=== PATIENT | male | born 1960 | race Caucasian/White ===

== ENCOUNTER 2025-03-03 12:59 | Inpatient (IN) ==
[2025-03-03] MEDS: SODIUM CHLORIDE 0.9% 1,000 ML IV SCH ×2 (13:30→18:17)
--- NOTE | 2025-03-03 13:32 | Emergency Department Note ---
History of Present Illness General Chief complaint: Abdominal Pain Stated complaint: ABDOMINAL PAIN, LIQUID IN ABDOMIN? Time Seen by Provider: 03/03/25 13:13 History of Present Illness Maximum Pain Intensity: 2 Patient is a 64-year-old male with past medical history significant for dyslipidemia who presents to the emergency department at the advice of his primary care provider for evaluation of abdominal pain and an abnormal CT scan performed this morning. Patient reports he has been experiencing bilateral lower abdominal discomfort for about 5 days. Pain was dull, but constant in nature, got worse in the last 2 to 3 days. He feels like it is worse in the right lower quadrant. He developed low-grade fever and chills in the last 48 hours. No nausea, vomiting or diarrhea, he actually feels a little bit constipated, last good bowel movement was 24 hours ago. He has not take any medications for his symptoms, but has tried a soft diet. He rated his pain a 2/10 in triage. No urinary symptoms. He was seen at [facility] today, and a CT scan of the abdomen and pelvis with IV contrast was obtained. He was contacted with abnormal findings indicative of "appendicitis," and presented to the emergency department. He did eat eggs, pancakes and tea at 1230 today. Home Medications Medication Instructions Recorded Confirmed Type cholecalciferol (vitamin D3) 50 1,000 units PO PM 06/25/19 09/12/22 History mcg (2,000 unit) capsule rosuvastatin 5 mg tablet (Crestor) 5 mg PO DAILY #90 tabs 08/31/22 09/12/22 Rx Allergies Allergy/AdvReac Type Severity Reaction Status Date / Time No Known Allergies Allergy Verified 09/12/22 09:06 Past Med/Surg History Problem List (Updated 03/03/25 @ 15:22 by Michael Cole) Acute appendicitis with localized peritonitis (Acute) Elevated liver enzymes Systolic murmur at cardiac apex Colon cancer screening Encounter for pre-operative examination Acquired deviated nasal septum Lesion of tongue Medical History Situational anxiety Dyslipidemia BORDERLINE>NO MEDS Vitamin D deficiency Aortic stenosis GERD (gastroesophageal reflux disease) Surgical History History of nasal septoplasty History of laryngoscopy H/O Achilles tendon repair LEFT History of tooth extraction History of surgery suspicious spot removed from face; benign History of colonoscopy Family History Mother Family history of diabetes mellitus Uncle Prostate cancer Other No family history of adverse response to anesthesia Denies family history of Ovarian cancer Myocardial infarction Breast cancer Colorectal cancer Social History Smoking Status: Former smoker Tobacco Type: Pipe and Cigars Age Started Using Tobacco: 20; Age Quit Using Tobacco: 30; Cigarettes Per Day: social; Second Hand Exposure: No; Do You Dip or Chew Tobacco: No; Hx Alcohol Use: No Hx Substance Use: No Preferred Language: Angolan Communication Ability: Effective Visual Impairment: No Limitations Hearing Ability: Normal Clutch Mechanic Required: No Beliefs That Will Affect Care: None marital status: Current Living Situation: Spouse current occupational status: employed current occupation: Professor at [employer] How many Children do You have: 1 How many Children do You have Comment: adopted child Feels Safe at Home: Yes Childhood Exposure to Second-Hand Smoke: No Diet: regular Diet Comment: regular caffeine: Yes (coffee and tea ) during the past year weight has: remained stable Dental Care, Regularly: Yes Physical Activity Frequency: Daily Seatbelt Use: always Sunscreen Use: Yes Assistive Devices: Glasses Review of Systems A total of 10 systems reviewed and were otherwise negative Physical Exam Vital Signs Vital Signs - 24 hr 03/03/25 13:09 03/03/25 13:45 03/03/25 13:48 Temperature 36.7 C Temperature Source Temporal Artery Scan Pulse Rate 60 59 L 57 L Pulse Rate [Right Finger] Pulse Strength Normal Respiratory Rate 18 22 Respiratory Effort / Characteristics Non-Labored Spontaneous Respiratory Depth Normal Respiratory Pattern Regular Blood Pressure 120/76 108/74 Blood Pressure [Right Arm] Blood Pressure Mean 90 85 Blood Pressure Mean [Right Arm] Blood Pressure Position Sitting Blood Pressure Position [Right Arm] Pulse Oximetry 97 98 Oxygen Delivery Method Room Air Room Air Sepsis Recent Fever Within 48 Hours No Sepsis New/Unexplained Change in Mental Status No Sepsis Action Taken by Nursing No Action Required 03/03/25 14:33 03/03/25 14:36 Temperature 36.8 C Temperature Source Oral Pulse Rate Pulse Rate [Right Finger] 107 H Pulse Strength Respiratory Rate 16 Respiratory Effort / Characteristics Non-Labored Respiratory Depth Normal Respiratory Pattern Regular Blood Pressure Blood Pressure [Right Arm] 117/74 Blood Pressure Mean Blood Pressure Mean [Right Arm] 88 Blood Pressure Position Blood Pressure Position [Right Arm] Semi-fowlers Pulse Oximetry 98 Oxygen Delivery Method Room Air Room Air Sepsis Recent Fever Within 48 Hours Sepsis New/Unexplained Change in Mental Status Sepsis Action Taken by Nursing CONSTITUTIONAL: Well-appearing 64-year-old male who is awake and alert and in no acute distress moving about the exam room. is at the bedside. EYES: Pupils equal, round, reactive to light and accommodation. EOMs intact without nystagmus. Sclera are anicteric. CARDIOVASCULAR: Regular rate and rhythm. Peripheral pulses easily palpable. RESPIRATORY: Breath sounds equal and clear to auscultation. ABDOMEN: Bowel sounds are present. The abdomen is soft, nondistended, tender to percussion over the right lower quadrant and tender to palpation in the right lower quadrant with guarding and mild rigidity noted. INTEGUMENTARY: No lesions or rash, normal skin turgor. LYMPH: No lymphadenopathy. Course Course The patient was seen and assessed as above. External medical records are reviewed. Outpatient CT scan performed just LITIGATION SERVICES MANAGER per my interpretation notes acute appendicitis. Radiologist report: "There is an appendicolith at the proximal appendix. The appendix is abnormal with severe diffuse wall thickening, dilatation measuring up to 2 cm diameter and extensive adjacent inflammation. Findings are consistent with acute appendicitis. There is likely reactive inflammation at the adjacent cecum. No other bowel inflammation or obstruction seen. There is a possible tiny abscess adjacent to the proximal appendix. No other free fluid free air or abscess." IV lock was initiated and laboratory studies were collected. CBC with differential, CMP, lipase and urinalysis were collected. Patient was hydrated with normal saline solution and given Zosyn IV. Consultation placed with general surgery, patient discussed with Dr. Stewart. Patient was seen by Christina Colon PA-C and was taken to the OR for surgical intervention. Diagnostics, as interpreted by me: Laboratory studies: Mildly elevated white count at 12,300 with left shift. No electrolyte imbalance, EAST[place] or transaminitis. Lipase is normal. Differential diagnosis: UTI, pyelonephritis, kidney stone, appendicitis, diverticulitis, bowel obstruction, perforation, mass or malignancy, among others. Administered Medications Lactated Ringer's (Lr) 1,000 mls @ 15 mls/hr IV .Q24H DARRELL Stop: 03/06/25 14:44 Last Admin: 03/03/25 14:46 Dose: 15 mls/hr Documented By: AGATA Discontinued Medications Sodium Chloride (Nss) 1,000 mls @ 999 mls/hr IV .Q1H1M DARRELL Stop: 03/03/25 14:32 Last Infusion: 03/03/25 14:17 Dose: Infused Documented By: Admin: 03/03/25 13:30 Dose: 999 mls/hr Documented By: GRACE Piperacillin Sod/Tazobactam Sod (Zosyn) 4.5 gm in 100 mls @ 200 mls/hr IV NOW ONE; Protocol Stop: 03/03/25 14:01 Last Infusion: 03/03/25 14:18 Dose: Infused Documented By: Admin: 03/03/25 13:44 Dose: 200 mls/hr Documented By: GRACE Medical Decision Making Differential Diagnosis See ED course. Medical Records Attestation: I reviewed the patient's medical records. Home Medications Current Medication List: was personally reviewed by me Laboratory Data Attestation: I reviewed the patient's lab results. 03/03/25 13:27 03/03/25 13:27 Lab Results 03/03/25 Range/Units 13:27 WBC 12.32 H (4.8-10.8) K/ul RBC 4.86 (4.70-6.10) M/uL Hgb 15.3 (14.0-18.0) g/dl Hct 44.0 (42.0-52.0) % MCV 90.5 (80.0-100.0) fL MCH 31.5 (25.0-34.0) pg MCHC 34.8 (32.0-36.0) g/dL RDW Std Deviation 45.2 (36.4-46.3) fL RDW Coeff of Anahy 13.4 (11.5-14.5) % Plt Count 227 (130-400) K/uL MPV 10.7 (9.4-12.4) fL Immature Gran % (Auto) 0.2 % Neut % (Auto) 81.1 % Lymph % (Auto) 10.1 % [place] % (Auto) 7.0 % Eos % (Auto) 1.4 % Baso % (Auto) 0.2 % Neut # (Auto) 9.99 H (1.40-6.50) K/uL Lymph # (Auto) 1.24 (1.20-3.40) K/uL [place] # (Auto) 0.86 H (0.11-0.59) K/uL Eos # (Auto) 0.17 (0.00-0.50) K/uL Baso # (Auto) 0.03 (0.00-0.20) K/uL Immature Gran # (Auto) 0.03 (0.01-0.20) K/uL Sodium 136 (136-145) mmol/L Potassium 3.9 (3.5-5.1) mmol/L Chloride 100 (98-107) mmol/L Carbon Dioxide 29 (21-32) mmol/L Anion Gap 7 (3-11) BUN 8 (6-23) mg/dl Creatinine 0.81 (0.6-1.4) mg/dl Est Cr Clr Drug Dosing 98.1 ml/min eGFR 98.46 BUN/Creatinine Ratio 9.9 L (10-20) Glucose 118 H (70-99(Fasting)) mg/dl Calcium 9.1 (8.6-10.3) mg/dl Total Bilirubin 0.6 (0.2-1.0) mg/dl AST 16 (13-39) U/L ALT 19 (7-52) U/L Alkaline Phosphatase 78 (34-104) U/L Total Protein 7.4 (6.0-8.3) gm/dl Albumin 4.3 (3.4-5.0) gm/dl Globulin 3.1 (2.5-4.0) gm/dl Albumin/Globulin Ratio 1.4 (0.9-2) Lipase 10 L (11-82) U/L Imaging Data Attestation: I personally reviewed and interpreted this imaging study as follows: MDM Narrative See ED course. Impression & Plan Acute appendicitis with localized peritonitis Discharge Plan Visit Data Chief Complaint: Abdominal Pain Stated Complaint: ABDOMINAL PAIN, LIQUID IN ABDOMIN? ED Provider: Gurmeet Tolliver ED Midlevel Provider: Michael Cole Discharge Problem: Acute appendicitis with localized peritonitis Patient Disposition: Admitted As Inpatient Condition: Fair Discharge Instructions Interventions: ED Discharge Assessment Last Done: 03/03/25 14:33 Forms Stand Alone Forms: My [facility] Prescriptions Prescriptions: No Action rosuvastatin [Crestor] 5 mg tablet 5 mg PO DAILY Qty: 90 3RF cholecalciferol (vitamin D3) 2,000 unit capsule 1,000 units PO PM Referrals Referrals: Gallito Rodriguez MD [Primary Care Provider] -
[2025-03-03] MEDS: PIPERACILLIN/TAZOBACTAM 4.5 GM/100 ML BAG IV ONE (13:44)
[2025-03-03 13:52] LABS: Basophils # (auto) 0.03 K/uL (0.00-0.20); Basophils % (auto) 0.2 %; Eosinophils # (auto) 0.17 K/uL (0.00-0.50); Eosinophils % (auto) 1.4 %; Hemoglobin 15.3 g/dl (14.0-18.0); Immature Granulocytes # (auto) 0.03 K/uL (0.01-0.20); Immature Granulocytes % (auto) 0.2 %; Lymphocytes # (auto) 1.24 K/uL (1.20-3.40); Lymphocytes % (auto) 10.1 %; Mean Corpuscular Hemoglobin 31.5 pg (25.0-34.0); Mean Corpuscular Hgb Conc 34.8 g/dL (32.0-36.0); Mean Corpuscular Volume 90.5 fL (80.0-100.0); Mean Platelet Volume 10.7 fL (9.4-12.4); Monocytes # (auto) 0.86 K/uL (0.11-0.59); Neutrophils # (auto) 9.99 K/uL (1.40-6.50); Neutrophils % (auto) 81.1 %; Platelet Count 227 K/uL (130-400); RDW Coefficient of Variation 13.4 % (11.5-14.5); RDW Standard Deviation 45.2 fL (36.4-46.3); Red Blood Count 4.86 M/uL (4.70-6.10); White Blood Count 12.32 K/ul (4.8-10.8)
[2025-03-03] MEDS ORDERED: fentaNYL citrate PF 100 MCG/2 ML VIAL ONE ×3 (13:57→16:09)
[2025-03-03] MEDS ORDERED: LIDOCAINE 2% 2 ML VIAL/AMP(20MG/ML) INFIL ONE (13:57)
[2025-03-03] MEDS ORDERED: MIDAZOLAM HCL 1 MG/ML 2ML VIAL ONE (13:57)
[2025-03-03] MEDS ORDERED: PROPOFOL IV EMULSION 10 MG/ML 20 ML VIAL IV ONE (13:57)
[2025-03-03] MEDS ORDERED: GLYCOPYRROLATE 0.2 MG/ML VIAL ONE (13:57)
[2025-03-03] MEDS ORDERED: DEXAMETHASONE SOD INJ 4 MG/ML VIAL ONE (13:57)
[2025-03-03] MEDS ORDERED: ONDANSETRON INJ 2 MG/ML 2 ML VIAL ONE (13:57)
[2025-03-03] MEDS ORDERED: ROCURONIUM BROMIDE 10 MG/ML 5 ML VIAL IV ONE (13:57)
[2025-03-03] MEDS ORDERED: SUGAMMADEX SODIUM 200 MG/2 ML VIAL IV ONE (14:03)
--- NOTE | 2025-03-03 14:17 | History & Physical Report ---
Date of Service March 03, 2025 Assessment & Plan (1) Acute appendicitis with localized peritonitis: Plan: concern for developing abscess from perforation would proceed emergently despite small meal at noon rapid sequence intubation IV abx IVF History of Present Illness Primary Care Provider: Gallito Rodriguez MD This is a 64-year-old male with abdominal pain and an abnormal outpatient CT scan showing severe acute appendicitis with potentially developing abscess. He has fever and chills over the 48 hours but no nausea, vomiting or diarrhea, Allergies Allergy/AdvReac Type Severity Reaction Status Date / Time No Known Allergies Allergy Verified 09/12/22 09:06 Home Medications Medication Instructions Recorded Confirmed Type cholecalciferol (vitamin D3) 50 1,000 units PO PM 06/25/19 09/12/22 History mcg (2,000 unit) capsule rosuvastatin 5 mg tablet (Crestor) 5 mg PO DAILY #90 tabs 08/31/22 09/12/22 Rx Past Med/Surg History Problem List (Updated 03/03/25 @ 14:18 by Poncho Stewart MD) Acute appendicitis with localized peritonitis Elevated liver enzymes Systolic murmur at cardiac apex Colon cancer screening Encounter for pre-operative examination Acquired deviated nasal septum Lesion of tongue Medical History Situational anxiety Dyslipidemia BORDERLINE>NO MEDS Vitamin D deficiency Aortic stenosis GERD (gastroesophageal reflux disease) Surgical History History of nasal septoplasty History of laryngoscopy H/O Achilles tendon repair LEFT History of tooth extraction History of surgery suspicious spot removed from face; benign History of colonoscopy Family History Mother Family history of diabetes mellitus Uncle Prostate cancer Other No family history of adverse response to anesthesia Denies family history of Ovarian cancer Myocardial infarction Breast cancer Colorectal cancer Social History Smoking Status: Former smoker Tobacco Type: Pipe and Cigars Age Started Using Tobacco: 20; Age Quit Using Tobacco: 30; Cigarettes Per Day: social; Second Hand Exposure: No; Do You Dip or Chew Tobacco: No; Hx Alcohol Use: No Hx Substance Use: No Preferred Language: Guyanese Communication Ability: Effective Visual Impairment: No Limitations Hearing Ability: Normal Primary Substance Abuse Counselor Required: No Beliefs That Will Affect Care: None marital status: Current Living Situation: Spouse current occupational status: employed 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 How many Children do You have Comment: adopted child Feels Safe at Home: Yes Childhood Exposure to Second-Hand Smoke: No Diet: regular Diet Comment: regular caffeine: Yes (coffee and tea ) during the past year weight has: remained stable Dental Care, Regularly: Yes Physical Activity Frequency: Daily Seatbelt Use: always Sunscreen Use: Yes Assistive Devices: Glasses Review of Systems + fever and + chills; no anorexia no problem reported no problem reported no cough and no dyspnea no chest pain + abdominal pain and + change in bowel habits; no nausea and no vomiting no dysuria no problem reported no problem reported no localized weakness and no generalized weakness no behavioral changes no fatigue no easy bleeding and no easy bruising Physical Exam Constitutional: WD/WN, vitals as above Eyes: no scleral abnormality ENMT: external ear and nose normal, oropharynx normal Neck: trachea midline Respiratory: normal respiratory effort, lungs clear to auscultation Cardiovascular: RRR, no murmur, no edema Gastrointestinal (Abdomen): Inspection/Auscultation: abdomen normal to inspection and normal bowel sounds; abdomen not distended Percussion/Palpation: + abdomen tender, + guarding and abdomen soft; abdomen not rigid Musculoskeletal: Head/Neck/Chest: normocephalic and head atraumatic Skin: no rashes, warm and dry Results & Data Vital Signs (Past 12 Hours) Vital Signs Temp Pulse Resp BP Pulse Ox O2 Del Method 03/03/25 13:48 57 L 22 108/74 98 Room Air 03/03/25 13:45 59 L 03/03/25 13:09 36.7 C 60 18 120/76 97 Room Air Diagnostic Findings ABDOMEN AND PELVIS CT WITH IV CONTRAST CT DOSE: 800.8 mGy.cm HISTORY: UNSPECIFIED ABD PAIN TECHNIQUE: Multiaxial CT images of the abdomen and pelvis were performed following the IV administration of 90 cc of Optiray, A dose lowering technique was utilized adhering to the principles of ALARA. COMPARISON STUDY: None FINDINGS: ABDOMEN: Liver, gallbladder, spleen, pancreas, and adrenal glands are unremarkable. Kidneys show no hydronephrosis or calculi. No abdominal aortic aneurysm. Pelvis: There is an appendicolith at the proximal appendix. The appendix is abnormal with severe diffuse wall thickening, dilatation measuring up to 2 cm diameter, and extensive adjacent inflammation. Findings are consistent with acute appendicitis. There is likely reactive inflammation at the adjacent cecum. No other bowel inflammation or obstruction seen. There is a possible tiny abscess adjacent to the proximal appendix. No other free fluid, free air, or abscess. Osseous structures: No acute osseous findings. IMPRESSION: 1. Severe acute appendicitis. 2. Possible tiny abscess adjacent to the proximal appendix.
[2025-03-03 14:23] LABS: Albumin Globulin Ratio 1.4 (0.9-2); Albumin Level 4.3 gm/dl (3.4-5.0); BUN Creatinine Ratio 9.9 (10-20); Bilirubin,Total 0.6 mg/dl (0.2-1.0); Calcium 9.1 mg/dl (8.6-10.3); Creatinine Clr Calc Pharmacy 98.1 ml/min; Globulin 3.1 gm/dl (2.5-4.0); Potassium 3.9 mmol/L (3.5-5.1); Total Protein 7.4 gm/dl (6.0-8.3)
[2025-03-03] MEDS: LACTATED RINGER'S 1,000 ML IV SCH ×2 (14:46→18:17)
[2025-03-03] MEDS ORDERED: HYDROmorphone INJ 1 MG/ML SYRINGE IV PRN (14:47)
[2025-03-03] MEDS ORDERED: fentaNYL citrate PF 100 MCG/2 ML VIAL IV PRN (14:47)
[2025-03-03] MEDS ORDERED: ATROPINE SULFATE 0.1 MG/ML 10ML SYR IV PRN (14:47)
[2025-03-03] MEDS ORDERED: ePHEDrine sulfate 50 MG/ML AMP IV PRN (14:47)
[2025-03-03] MEDS ORDERED: ONDANSETRON INJ 2 MG/ML 2 ML VIAL IV PRN ×2 (14:47→17:34)
--- NOTE | 2025-03-03 14:50 | Anesthesiology Consultation ---
Date of Service March 03, 2025 Assessment & Plan Chart Review Chart Review: Acceptable Risk for Surgery Consults Requested none ASA [id number] Proposed Anesthesia Anesthesia Type: General and Other (RSI) History Surgery Operation Date: 03/03/25 13:40 Proposed Procedures p Laparoscopic Appendectomy - Poncho Stewart MD Height/Weight Height: 5 ft 11 in Weight: 78.7 kg Allergies Allergy/AdvReac Type Severity Reaction Status Date / Time No Known Allergies Allergy Verified 09/12/22 09:06 Medications Home Medications Medication Instructions Recorded Confirmed Last Taken cholecalciferol (vitamin D3) 50 1,000 units PO PM 06/25/19 09/12/22 03/28/21 mcg (2,000 unit) capsule rosuvastatin 5 mg tablet (Crestor) 5 mg PO DAILY #90 tabs 08/31/22 09/12/22 Unknown Active Medications Generic Name Dose Route Start Last Admin Trade Name Freq PRN Reason Stop Dose Admin Lactated Ringer's 1,000 mls @ 15 mls/hr 03/03/25 14:45 03/03/25 14:46 Lr IV 03/06/25 14:44 15 mls/hr .Q24H DARRELL Administration NPO Date Last Intake of Fluids: 03/03/25 Time Last Intake of Fluids: 12:30 Date Last Intake of Solids: 03/03/25 Time Last Intake of Solids: 12:30 Past Medical History Medical History Situational anxiety Dyslipidemia BORDERLINE>NO MEDS Vitamin D deficiency Aortic stenosis GERD (gastroesophageal reflux disease) Exercise / Class Metabolic Activity II 4-5 Yardwork/Stairs/Walk up hill Past Family History Family History Mother Family history of diabetes mellitus Uncle Prostate cancer Other No family history of adverse response to anesthesia Denies family history of Ovarian cancer Myocardial infarction Breast cancer Colorectal cancer Past Surgical History Surgical History History of nasal septoplasty History of laryngoscopy H/O Achilles tendon repair LEFT History of tooth extraction History of surgery suspicious spot removed from face; benign History of colonoscopy Past Anesthesia History No Hx of Anesthesia Complications History of PONV No Hx of PONV Social History Smoking Status: Former smoker tobacco type: pipe and cigars Smoking cigarettes per day: social Do You Dip or Chew Tobacco: No Hx Alcohol Use: No alcohol intake frequency: holidays/special occasions only Hx Substance Use: No substance use type: does not use Physical Exam Vital Signs Last Vital Signs Temp 36.8 C 03/03/25 14:36 Pulse 107 H 03/03/25 14:36 Resp 16 03/03/25 14:36 BP 117/74 03/03/25 14:36 Pulse Ox 98 03/03/25 14:36 O2 Del Method Room Air 03/03/25 14:36 Constitutional no acute distress ENMT Mouth: no TMJ abnormality Thyromental Distance: > or= 3.5 Finger Breadths Mallampati Class: II Neck normal visual inspection Respiratory normal respiratory effort Auscultation: lungs clear to auscultation bilaterally Cardiovascular Rate/Rhythm: regular rate and regular rhythm Neurologic moves all extremities Psychiatric Orientation: alert and oriented x 3 Testing Laboratory Results 03/03/25 13:27 03/03/25 13:27
[2025-03-03] MEDS ORDERED: SUCCINYLCHOLINE CHLORIDE 20 MG/ML 10 ML VIAL IV ONE (14:53)
[2025-03-03] MEDS: BUPIVACAINE/EPINEPHRINE 0.5% MPF 1:200,000 30 ML VIAL ONE (16:20)
--- NOTE | 2025-03-03 16:34 | Operative Report ---
Post Operative Report Pre & Post Diagnosis Operation Date: 03/03/25 13:40 Acute gangrenous appendicitis with dense inflammatory adhesions I identified the patient and participated in the time-out.: Yes Procedure Operation Date: 03/03/25 13:40 Laparoscopic appendectomy, complex Surgeon Poncho Stewart MD Cna Pct Christina Colon PA-C Estimated Blood Loss 70 Findings Consistent with Post-Op Diagnosis Acute near gangrenous appendicitis, severe dense inflammatory adhesions with no obvious perforation Specimens Appendix to pathology Drains Sammy drain in the right lower quadrant Anesthesia Type General Complications None Indications This is a 64-year-old male with 5 days of abdominal pain who comes in after an outpatient CT showed a complex severe appendicitis with include acute inflammatory changes. There was a questionable developing abscess. He therefore was taken to the OR for emergent laparoscopic appendectomy. Description of Procedure The patient was taken to the OR and underwent excellent general anesthesia. Their abdomen was prepped and draped in normal sterile fashion. A transverse supraumbilical incision was made, towel clamps were used to create tension on the abdominal wall as a Veress needle was inserted gently into the peritoneal cavity. Good pneumoperitoneum was achieved to about 15 mmHg pressure. Once this was done, a visualized 11 port was placed in the supraumbilical position. A 12 mm left lower quadrant port , a 5mm suprapubic port , and a 5mm right upper quadrant port were all placed in normal fashion. Patient was then placed in head down and rolled to the left. A good diagnostic lap was performed. They had obvious acute appendicitis severe and dense adhesions. This was a complicated surgery which required extensive dissection and extensive time to perform the procedure. The cecum was grasped with an atraumatic grasper. A grasper was then was then used to grasp the tip of the appendix. The mesoappendix was splayed open and a harmonic scalpel was used to take down the mesoappendix. The appendix was friable and was brought out in sections. The base of the appendix was identified and an Endo HUMAIRA stapler was used to transect the appendix at its base. A endobag was then inserted through the left lower quadrant port and the appendix was placed into the bag, The bag was removed through the left lower quadrant port. The appendix was sent for pathologic evaluation. The pneumoperitoneum was re-established after the 12 mm port was replaced. Saline was then used to irrigate the abdomen. An Endo Clip was used to control bleeding. There was no active bleeding nor any other abnormalities noted in the abdomen. The patient was then placed back in neutral position. A 19 Sammy drain was placed in the right lower quadrant. The ports were removed and the pneumoperitoneum decompressed. The 12mm port fascia was then closed using a 0 Vicryl. The skin was then anesthetized with 0.5% Marcaine with epinephrine local. Interrupted Vicryl is used to close the skin. The drain was secured with a nylon suture. Dermabond was used to reinforce the incisions. Sterile dressings were applied. The patient tolerated procedure without complications was sent to the postop recovery period of observation. They will be sent to the floor for the rest of their care. Christina Colon PA-C was present and participated in the entire procedure. She was integral in skin closure, retraction, and camera manipulation. There was no qualified resident available to assist. I attest to the content of the Intraoperative Record and any orders documented therein. Any exceptions are noted below.
--- NOTE | 2025-03-03 17:05 | Anesthesiology Progress Note ---
Date of Service March 03, 2025 Anesthesia Post Procedure Vital Signs Vital Signs: Temp Pulse Pulse Pulse Resp BP BP 03/03/25 16:50 78 18 147/86 H 03/03/25 16:40 68 15 152/92 H 03/03/25 16:34 36.1 C L 82 18 143/97 H 03/03/25 14:36 36.8 C 107 H 16 03/03/25 14:33 03/03/25 13:48 57 L 22 108/74 03/03/25 13:45 59 L 03/03/25 13:09 36.7 C 60 18 120/76 BP Pulse Ox O2 Del Method O2 Flow Rate 03/03/25 16:50 92 Nasal Cannula 2 03/03/25 16:40 98 Nasal Cannula 2 03/03/25 16:34 92 Oxymask 4 03/03/25 14:36 117/74 98 Room Air 03/03/25 14:33 Room Air 03/03/25 13:48 98 Room Air 03/03/25 13:45 03/03/25 13:09 97 Room Air Pain Intensity Left Abdomen: Pain Intensity: 3 Bilateral Abdomen: Pain Intensity: 3 Transfer of Care Handoff Completed per policy Notes Mental Status: alert / awake / arousable Patient Amnestic to Procedure: Yes Nausea / Vomiting: adequately controlled Pain: adequately controlled Airway Patency, RR, SpO2: stable & adequate BP & HR: stable & adequate Hydration State: stable & adequate Anesthetic Complications: no major complications apparent
[2025-03-03] MEDS ORDERED: oxyCODONE/ACETAMINOPHEN 5mg/325mg TAB PO PRN ×2 (17:34)
[2025-03-03] MEDS ORDERED: PROMETHAZINE 25 MG/51 ML BAG IV PRN (17:34)
[2025-03-03] MEDS ORDERED: MoRPHine SULFATE 2 MG/ML CARP IV PRN (17:34)
[2025-03-03] MEDS ORDERED: MoRPHine SULFATE 4 MG/ML 1 ML CARP\\VIAL IV PRN (17:34)
[2025-03-03] MEDS: PIPERACILLIN/TAZOBACTAM 4.5 GM/100 ML BAG IV SCH (20:03)
[2025-03-03 21:36] LABS: Appearance Urine Clear (Clear); Bilirubin Urine Negative (Negative); Blood Urine Negative (Negative); Color Urine Yellow; Glucose Urine UA Negative (Negative); Ketones Urine 1+ (Negative); Leukocyte Esterase Urine Negative (Negative); Nitrite Urine Negative (Negative); Protein Urine Negative (Negative); Specific Gravity Urine 1.023 (1.000-1.030); Urobilinogen Urine Negative (Negative); pH Urine 5.5 (4.5-7.5)
[2025-03-04] MEDS: ACETAMINOPHEN 325 MG TAB PO PRN (01:08)
[2025-03-04 09:24] LABS: Basophils # (auto) 0.02 K/uL (0.00-0.20); Basophils % (auto) 0.1 %; Hematocrit (blood only) 39.8 % (42.0-52.0); Hemoglobin 13.9 g/dl (14.0-18.0); Immature Granulocytes # (auto) 0.09 K/uL (0.01-0.20); Immature Granulocytes % (auto) 0.6 %; Lymphocytes % (auto) 4.4 %; Mean Corpuscular Hemoglobin 31.5 pg (25.0-34.0); Mean Corpuscular Hgb Conc 34.9 g/dL (32.0-36.0); Mean Corpuscular Volume 90.2 fL (80.0-100.0); Mean Platelet Volume 9.7 fL (9.4-12.4); Monocytes # (auto) 0.89 K/uL (0.11-0.59); Monocytes % (auto) 5.6 %; Neutrophils # (auto) 14.19 K/uL (1.40-6.50); Neutrophils % (auto) 89.3 %; Platelet Count 218 K/uL (130-400); RDW Coefficient of Variation 13.6 % (11.5-14.5); RDW Standard Deviation 44.8 fL (36.4-46.3); Red Blood Count 4.41 M/uL (4.70-6.10); White Blood Count 15.89 K/ul (4.8-10.8)
--- NOTE | 2025-03-04 09:47 | Surgery Progress Note ---
Date of Service March 04, 2025 Assessment & Plan (1) Acute appendicitis with localized peritonitis: Plan: POD # 1 s/p laparoscopic appendectomy for severe appendicitis febrile last night tmax of 37.8, afebrile this am slightly increase in leukocytosis hemodynamically stable moderate posotp pain urinary retention last evenign Plan: Will need a few day sof IV abx continue pain management as needed clears for today encourage ambulation and incentive scds navid drain to bulb suction repeat am labs Dr. Stewart has seen and examined pt, agrees with above Admission and Anticipated Discharge Date Admission Date: March 03, 2025 Subjective feeling better preop pain resolved pain at incision sites and lower abdomen some difficulty urinating, straight cath last night and was able to urinate on own this am but has some burning and difficulty , pressure in abdomen after urinating walking hallway no chest pain or shortness of breath fever last night, none this am no n,v tolerated clear liquids Physical Exam Constitutional: WD/WN, vitals as above cooperative and comfortable; no acute distress and not ill appearing Respiratory: normal respiratory effort, lungs clear to auscultation Cardiovascular: Rate/Rhythm: regular rate and regular rhythm Heart Sounds: normal S1, normal S2 and + murmur Gastrointestinal (Abdomen): Inspection/Auscultation: abdomen normal to inspection, + abdomen distended, normal bowel sounds, + abdominal surgical incision (covered with dressings c/d/i) and + abdominal surgical drain present (bloody serous) Percussion/Palpation: + abdomen tender (generalized and at incision sites, appropriate postop) and abdomen soft; no guarding, abdomen not rigid and abdomen not firm Skin: no rashes, warm and dry Psychiatric: Orientation: alert and oriented x 3 Results & Data Vital Signs (Past 12 Hours) Vital Signs Temp Pulse Pulse Resp BP BP Pulse Ox 03/04/25 07:03 37.4 C 82 18 118/72 94 03/04/25 04:47 36.9 C 87 18 120/77 94 03/04/25 02:00 37.5 C 03/04/25 01:01 37.8 C H 97 H 18 112/73 93 O2 Del Method 03/04/25 07:03 Room Air 03/04/25 04:47 Room Air 03/04/25 02:00 03/04/25 01:01 Room Air Laboratory Results 0503/03/25 03/03/25 Range/Units 09:06 21:25 13:27 WBC 15.89 H 12.32 H (4.8-10.8) K/ul RBC 4.41 L 4.86 (4.70-6.10) M/uL Hgb 13.9 L 15.3 (14.0-18.0) g/dl Hct 39.8 L 44.0 (42.0-52.0) % MCV 90.2 90.5 (80.0-100.0) fL MCH 31.5 31.5 (25.0-34.0) pg MCHC 34.9 34.8 (32.0-36.0) g/dL RDW Std Deviation 44.8 45.2 (36.4-46.3) fL RDW Coeff of Anahy 13.6 13.4 (11.5-14.5) % Plt Count 218 227 (130-400) K/uL MPV 9.7 10.7 (9.4-12.4) fL Immature Gran % (Auto) 0.6 0.2 % Neut % (Auto) 89.3 81.1 % Lymph % (Auto) 4.4 10.1 % Gray % (Auto) 5.6 7.0 % Eos % (Auto) 0.0 1.4 % Baso % (Auto) 0.1 0.2 % Neut # (Auto) 14.19 H 9.99 H (1.40-6.50) K/uL Lymph # (Auto) 0.70 L 1.24 (1.20-3.40) K/uL Gray # (Auto) 0.89 H 0.86 H (0.11-0.59) K/uL Eos # (Auto) 0.00 0.17 (0.00-0.50) K/uL Baso # (Auto) 0.02 0.03 (0.00-0.20) K/uL Immature Gran # (Auto) 0.09 0.03 (0.01-0.20) K/uL Sodium 137 136 (136-145) mmol/L Potassium 3.8 3.9 (3.5-5.1) mmol/L Chloride 104 100 (98-107) mmol/L Carbon Dioxide 27 29 (21-32) mmol/L Anion Gap 6 7 (3-11) BUN 8 8 (6-23) mg/dl Creatinine 0.92 0.81 (0.6-1.4) mg/dl Est Cr Clr Drug Dosing 86.4 98.1 ml/min eGFR 92.89 98.46 BUN/Creatinine Ratio 8.7 L 9.9 L (10-20) Glucose 181 H 118 H (70-99(Fasting)) mg/dl Calcium 8.6 9.1 (8.6-10.3) mg/dl Total Bilirubin 0.6 (0.2-1.0) mg/dl AST 16 (13-39) U/L ALT 19 (7-52) U/L Alkaline Phosphatase 78 (34-104) U/L Total Protein 7.4 (6.0-8.3) gm/dl Albumin 4.3 (3.4-5.0) gm/dl Globulin 3.1 (2.5-4.0) gm/dl Albumin/Globulin Ratio 1.4 (0.9-2) Lipase 10 L (11-82) U/L Urine Color Yellow Urine Appearance Clear (Clear) Urine pH 5.5 (4.5-7.5) Ur Specific [place] 1.023 (1.000-1.030) Urine Protein Negative (Negative) Urine Glucose (UA) Negative (Negative) Urine Ketones 1+ H (Negative) Urine Blood Negative (Negative) Urine Nitrite Negative (Negative) Urine Bilirubin Negative (Negative) Urine Urobilinogen Negative (Negative) Ur Leukocyte Esterase Negative (Negative)
[2025-03-04 09:51] LABS: BUN Creatinine Ratio 8.7 (10-20); Calcium 8.6 mg/dl (8.6-10.3); Creatinine Clr Calc Pharmacy 86.4 ml/min; Potassium 3.8 mmol/L (3.5-5.1)
[2025-03-04] MEDS: DOCUSATE SODIUM 100 MG CAP PO SCH (10:35)
[2025-03-05] MEDS ORDERED: Nursing to Pharmacy Communication SCH (04:45)
[2025-03-05 05:30] LABS: Basophils # (auto) 0.02 K/uL (0.00-0.20); Basophils % (auto) 0.2 %; Eosinophils # (auto) 0.06 K/uL (0.00-0.50); Eosinophils % (auto) 0.5 %; Hematocrit (blood only) 39.4 % (42.0-52.0); Hemoglobin 13.5 g/dl (14.0-18.0); Immature Granulocytes # (auto) 0.03 K/uL (0.01-0.20); Immature Granulocytes % (auto) 0.3 %; Lymphocytes # (auto) 1.12 K/uL (1.20-3.40); Lymphocytes % (auto) 10.2 %; Mean Corpuscular Hemoglobin 31.4 pg (25.0-34.0); Mean Corpuscular Hgb Conc 34.3 g/dL (32.0-36.0); Mean Corpuscular Volume 91.6 fL (80.0-100.0); Mean Platelet Volume 9.7 fL (9.4-12.4); Monocytes # (auto) 0.82 K/uL (0.11-0.59); Monocytes % (auto) 7.5 %; Neutrophils # (auto) 8.95 K/uL (1.40-6.50); Neutrophils % (auto) 81.3 %; Platelet Count 209 K/uL (130-400); RDW Coefficient of Variation 13.6 % (11.5-14.5); RDW Standard Deviation 46.1 fL (36.4-46.3)
[2025-03-05 05:47] LABS: BUN Creatinine Ratio 11.4 (10-20); Calcium 8.8 mg/dl (8.6-10.3); Creatinine Clr Calc Pharmacy 90.3 ml/min; Potassium 3.9 mmol/L (3.5-5.1)
--- NOTE | 2025-03-05 12:38 | Surgery Progress Note ---
Date of Service March 05, 2025 Assessment & Plan (1) Acute appendicitis with localized peritonitis: Plan: advance to fulls con't IV abx ambulate Admission and Anticipated Discharge Date Admission Date: March 03, 2025 Subjective feels better some flatus afebrile taking po well Review of Systems Constitutional: no fever and no chills Respiratory: no cough and no dyspnea Cardiovascular: no chest pain Gastrointestinal: + abdominal pain; no nausea, no vomiting and no change in bowel habits Neurologic: no localized weakness Psychiatric: no behavioral changes Physical Exam Constitutional: WD/WN, vitals as above Respiratory: normal respiratory effort, lungs clear to auscultation Cardiovascular: RRR, no murmur, no edema Gastrointestinal (Abdomen): Inspection/Auscultation: abdomen normal to inspection, normal bowel sounds and + abdominal surgical incision; abdomen not distended Percussion/Palpation: + abdomen tender and abdomen soft; no guarding and abdomen not rigid ANNIA serosanguinous Musculoskeletal: Head/Neck/Chest: normocephalic and head atraumatic Results & Data Vital Signs (Past 12 Hours) Vital Signs Temp Pulse Pulse Resp BP BP Pulse Ox 03/05/25 07:28 36.8 C 56 L 16 114/70 98 03/05/25 02:00 36.7 C 58 L 16 128/78 94 O2 Del Method 03/05/25 07:28 Room Air 03/05/25 02:00 Room Air
[2025-03-06 04:49] LABS: Basophils # (auto) 0.03 K/uL (0.00-0.20); Basophils % (auto) 0.4 %; Eosinophils # (auto) 0.24 K/uL (0.00-0.50); Eosinophils % (auto) 2.9 %; Hematocrit (blood only) 34.5 % (42.0-52.0); Hemoglobin 11.6 g/dl (14.0-18.0); Immature Granulocytes # (auto) 0.03 K/uL (0.01-0.20); Immature Granulocytes % (auto) 0.4 %; Lymphocytes # (auto) 0.85 K/uL (1.20-3.40); Lymphocytes % (auto) 10.4 %; Mean Corpuscular Hgb Conc 33.6 g/dL (32.0-36.0); Mean Corpuscular Volume 92.2 fL (80.0-100.0); Mean Platelet Volume 9.9 fL (9.4-12.4); Monocytes # (auto) 0.76 K/uL (0.11-0.59); Monocytes % (auto) 9.3 %; Neutrophils # (auto) 6.25 K/uL (1.40-6.50); Neutrophils % (auto) 76.6 %; Platelet Count 188 K/uL (130-400); RDW Coefficient of Variation 13.4 % (11.5-14.5); RDW Standard Deviation 46.1 fL (36.4-46.3); Red Blood Count 3.74 M/uL (4.70-6.10); White Blood Count 8.16 K/ul (4.8-10.8)
[2025-03-06 05:04] LABS: BUN Creatinine Ratio 6.1 (10-20); Calcium 8.6 mg/dl (8.6-10.3); Creatinine Clr Calc Pharmacy 80.3 ml/min; Potassium 3.8 mmol/L (3.5-5.1)
--- NOTE | 2025-03-06 09:23 | Surgery Progress Note ---
Date of Service March 06, 2025 Assessment & Plan (1) Acute appendicitis with localized peritonitis: Plan: regular diet stop IVF continue IV abx ANNIA out in AM possible DC in AM Admission and Anticipated Discharge Date Admission Date: March 03, 2025 Subjective feels better some loose stools afebrile ANNIA serosanguious Review of Systems Constitutional: no fever and no chills Respiratory: no dyspnea Cardiovascular: no chest pain Gastrointestinal: + abdominal pain and + diarrhea/loose st ools; no nausea and no vomiting Neurologic: no localized weakness Psychiatric: no behavioral changes Hematologic / Lymphatic: no easy bleeding and no easy bruising Physical Exam Constitutional: WD/WN, vitals as above Respiratory: no respiratory distress Cardiovascular: RRR, no murmur, no edema Gastrointestinal (Abdomen): Inspection/Auscultation: abdomen normal to inspection and normal bowel sounds; abdomen not distended Percussion/Palpation: + abdomen tender and abdomen soft; no guarding and abdomen not rigid Musculoskeletal: Head/Neck/Chest: normocephalic and head atraumatic Results & Data Vital Signs (Past 12 Hours) Vital Signs Temp Pulse Resp BP Pulse Ox O2 Del Method 03/06/25 07:55 37 C 52 L 18 105/65 95 Room Air
[2025-03-06 21:59] VITALS: O2SAT 96
[2025-03-07 08:07] VITALS: PULSE 62; RESP 20; TEMP 98.2
--- NOTE | 2025-03-07 12:52 | Discharge Summary ---
Date of Service March 07, 2025 Admission HPI Per Admitting Provider This is a 64-year-old male with abdominal pain and an abnormal outpatient CT scan showing severe acute appendicitis with potentially developing abscess. He has fever and chills over the 48 hours but no nausea, vomiting or diarrhea, Principal Diagnosis acute appendicitis with perforation, no abscess Discharge Exam Constitutional WD/WN, vitals as above cooperative and comfortable; no acute distress and not ill appearing Respiratory normal respiratory effort, lungs clear to auscultation Cardiovascular Rate/Rhythm: regular rate Heart Sounds: normal S1, normal S2 and + murmur Gastrointestinal (Abdomen) Inspection/Auscultation: abdomen normal to inspection, + abdominal surgical incision (c/d/i with dermabdon) and + abdominal surgical drain present (bloody serosanguineous); abdomen not distended Percussion/Palpation: + abdomen tender (mild at RLQ and incision sites) and abdomen soft; no guarding, abdomen not rigid and abdomen not firm Skin no rashes, warm and dry Psychiatric A+Ox3, euthymic affect Discharge Data Allergies Allergy/AdvReac Type Severity Reaction Status Date / Time No Known Allergies Allergy Verified 09/12/22 09:06 Procedures Performed Operation Date: 03/03/25 13:40 Actual Procedures p Laparoscopic Appendectomy(Not Applicable) - Poncho Stewart MD Hospital Course (1) Acute appendicitis with localized peritonitis: Patient taken to operating room for laparoscopic appendectomy on 03/03/2025 and found to have perforated appendicitis with significant phlegmonous changes but no abscess. Patient tolerated procedure without difficulty and transferred to recovery room and medical/surgical floor for postop care. NAVID drain was placed, activity as tolerated, IV Zosyn, and npo for bowel rest. Diet was slowly advanced to regular diet by POD # 4 , navid drain was removed prior to discharge and IV abx transition to oral Augmentin for 10 days. Close follow-up in surgery office scheduled. Overrall hospital course was uneventful. Total Time Total Time Spent Total Time Spent (In Minutes): 30 minutes Total Time Includes: Examination of the Patient, Discharge Planning and Medication Reconciliation Discharge Plan Discharge Items Patient Disposition: Home - Self-Care Reason For Visit: APPENDICITIS, COMPLICAED Discharge Diagnosis: Acute perforated appendicitis Condition on Discharge: Fair Activity: Per Instructions section Non-emergency contact: Primary Care Provider and Surgeon Call non-emergency contact if: you have any medication questions, your pain is not controlled, you have a fever, your temperature is above 101, your wound has increased redness, your wound has increased drainage and your wound pain has increased Follow-up/Referrals: Poncho Stewart MD [Physician] - 03/12/25 11:15 am Gallito Rodriguez MD [Primary Care Provider] - Diet: Regular Addtl Attending Provider Instructions: Post-Surgical ~Discharge Instructions Activity Recommendations: - lifting limitation: (20 pounds for 2-3 weeks), - exercise/sex/sports limit: (nonstrenuous for 2 weeks), - driving or machine use limit: (none for 1 week or until pain free and no longer taking narcotic pain medication), - Shower/bathe limit: (may shower, no submerging underwater for 2 weeks, no bathing, swimming, hot tubs) Diet: - Resume previous diet SPECIAL CARE INSTRUCTIONS: - May shower. Let water run over area and pat dry. - Leave surgical glue on incisions this will fall off on its own. - Surgical drain site will heal on its own from inside out. Cannot submerge underwater until this is completely healed. Keep dressing over the area and change daily. - Call the surgeon's office with any questions or concerns - - (ex. temperature higher than 101 degrees F, excessive bleeding or pain). MEDICATIONS: - Resume previous medications unless instructed otherwise by your surgeon. - May alternate extra strength Tylenol and Ibuprofen as needed for mild to moderate pain -650 mg Tylenol every 6 hours as needed - Ibuprofen 600 mg every 6 hours as needed (take with food) - Percocet 1 every 6 hours, as needed for moderate to severe pain - Recommend daily stool softener (Colace) while taking narcotic pain medication to prevent constipation or straining. Drink plenty of water daily. FOLLOW UP VISIT: - If not already scheduled, please call the office to schedule a one- two week follow-up appointment. Office number Pending Studies at Discharge: Yes (surgical pathology, will be reviewed at postop visit) Stand-Alone Forms: My [employer], Smoking Cessation Medications and DC Order Prescriptions: New amoxicillin-pot clavulanate 875-125 mg tablet 1 tab PO BID Qty: 20 0RF oxycodone-acetaminophen 5-325 mg tablet 1 tab PO Q6H PRN (Reason: pain) Qty: 7 0RF Continued rosuvastatin [Crestor] 5 mg tablet 5 mg PO DAILY Qty: 90 3RF cholecalciferol (vitamin D3) 2,000 unit capsule 1,000 units PO PM Discharge Orders: Discharge Order (Routine); Ordered 03/07/25 Ordered By: Christina Colon Admission Data Admit Date/Time: 03/03/25 16:38 Attending Provider: Poncho Stewart Admit Provider: Poncho Stewart Primary Care Provider: Gallito Rodriguez
[2025-03-07 13:52] VITALS: BP 128/78
== END 2025-03-07 14:50 | disposition home or self-care (01) | DRG 337 ==
LOC: ED 12:59 → 4W 14:33 → OR 14:33 → 4W 16:38

== ENCOUNTER 2025-05-30 20:25 | Observation (INO) ==
[2025-05-30 21:13] LABS: Hematocrit (blood only) 46.6 % (42.0-52.0); Hemoglobin 16.3 g/dl (14.0-18.0); Immature Granulocytes # (auto) 0.01 K/uL (0.01-0.20); Immature Granulocytes % (auto) 0.2 %; Mean Corpuscular Hemoglobin 30.7 pg (25.0-34.0); Mean Corpuscular Volume 87.8 fL (80.0-100.0); Platelet Count 222 K/uL (130-400); RDW Standard Deviation 46.1 fL (36.4-46.3); Red Blood Count 5.31 M/uL (4.70-6.10); White Blood Count 6.35 K/ul (4.8-10.8)
[2025-05-30 21:21] LABS: Appearance Urine Clear (Clear); Glucose Urine UA Negative (Negative)
[2025-05-30 21:30] LABS: Anion Gap 7.0 (3-11); Blood Urea Nitrogen 14.0 mg/dl (6-23); Calcium 9.1 mg/dl (8.6-10.3); Carbon Dioxide 27.0 mmol/L (21-32); Chloride 104.0 mmol/L (98-107); Creatinine Clr Calc Pharmacy 84.6 ml/min; Glucose 94.0 mg/dl (70-99(Fasting)); Potassium 3.9 mmol/L (3.5-5.1); Sodium 138.0 mmol/L (136-145)
[2025-05-30 21:49] LABS: Alanine Aminotransferase 30.0 U/L (7-52); Albumin Globulin Ratio 1.5 (0.9-2); Alkaline Phosphatase 72.0 U/L (34-104); Bilirubin,Total 0.3 mg/dl (0.2-1.0); Globulin 2.8 gm/dl (2.5-4.0); Lipase 1864.0 U/L (11-82); Total Protein 7.0 gm/dl (6.0-8.3)
[2025-05-30] MEDS: OPTIRAY 320 100ml IV ONE (22:13)
[2025-05-30] MEDS: LACTATED RINGER'S 1,000 ML IV SCH (22:40)
--- NOTE | 2025-05-30 23:58 | History & Physical Report ---
Date of Service May 30, 2025 Assessment & Plan (1) Pancreatitis: (2) Postoperative abscess: (3) Dyslipidemia: Plan Patient is a 64-year-old male with past medical history of hyperlipidemia and vitamin D deficiency who was admitted for acute pancreatitis. Acute pancreatitis Started experiencing abdominal tenderness during/after his dinner, and resolved by the time of my evaluation No fevers or systemic symptoms associated to abdominal pain No alcohol use, new medications, or lzay-yai-szkkslu substances Patient had been on rosuvastatin in the past, but this was stopped due to elevated liver enzymes, per patient; triglyceride level pending Will admit to MedSurg N.p.o. for now, but can reintroduce food as able if patient tolerates LR at 125 mL/h Zofran IV as needed for nausea Pain control with Toradol as needed for moderate pain and Dilaudid as needed for severe pain Postoperative abscess with subsequent fistula formation CTAP from 05/28 showing wall thickening and inflammation of the rectosigmoid colon seen on 03/21/2025 has resolved, as has the perirectal abscess seen at the time, no residual fluid collection, 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 site of the prior abscess which involves the anterior wall of the rectum, the posterior aspect of the sigmoid colon, and also extends towards the seminal vesicles, and no evidence of bowel obstruction Repeat done in ED and pending read Follow up with general surgery as an outpatient Patient's relative mentioned they were notified of above-mentioned CT results, and that no acute surgical intervention was needed Given patient's history and current abdominal pain, will consult general surgery. Will appreciate their input. Given the patient is currently clinically stable and has not presented any fevers or leukocytosis, will defer initiating any antibiotics at this time. Dispo: Admit to MedSurg VTE prophylaxis: SCDs Diet: N.p.o. for now, but can resume diet and advance as tolerated once patient is able if no surgical intervention is recommended CODE STATUS: Full History of Present Illness Chief Complaint: Abdominal pain Primary Care Provider: Gallito Rodriguez MD Patient is a 64-year-old male with past medical history of hyperlipidemia and vitamin D deficiency who came to the emergency department after sudden onset of abdominal pain. Patient states that he was having dinner that consisted of vegetables and chicken, and during/after his dinner he suddenly started experiencing epigastric/periumbilical abdominal pain. Other associated symptoms include nausea without vomiting and some weakness. Denies having any other symptoms such as chest pain, shortness of breath, dyspnea on exertion, chills, fevers, diarrhea, or any other systemic symptom. Prior to the episode from this evening, patient denies having any episodes of abdominal pain. At the time of my evaluation, patient not experiencing any abdominal pain or nausea. Denies any addition of new medications or [id number] substances, has not drunk alcoholic beverages for the last 2 months, denies any tobacco use or any other illicit substance use. Of note, patient did have a laparoscopic appendectomy by Dr. Stewart on 03/03, after which she was noted to have a pelvic abscess a few weeks after. He has been following with the general surgery clinic for this concern, and had an exploratory laparotomy with washout of intra-abdominal abscess with retained appendicolith on 03/21 and then discharged with a drain and a 14-day course of Augmentin 875 mg p.o. twice daily, which she completed on the first week of April. CTAP was repeated on 05/28 which showed there is a complex f istulous tract seen at the site of the prior abscess which involves the anterior wall of the rectum, the posterior aspect of the sigmoid colon, and also extends towards the seminal vesicles. Patient's relative, who is at bedside, states that Surgery office had contacted them to notify them of these results and that they do not believe that any surgical intervention was required at this time. ED Course: LR started maintenance rate at 200 mL/h Labs/Imaging: CBC without leukocytosis, hemoglobin of 16.3, platelets of 222. CMP with no significant electrolyte abnormalities, renal markers within reference range, blood sugar of 94, LFTs unremarkable. Lipase of 1864. Nonfasting lipid panel ordered and pending. CT abdomen/pelvis done and pending read. Medical History: [Reviewed] Medications: [Reviewed] Surgical History: [Reviewed] Family history: [Reviewed] Allergies: [Reviewed] Social History: [Reviewed] Code Status: FULL Allergies Allergy/AdvReac Type Severity Reaction Status Date / Time No Known Allergies Allergy Verified 05/30/25 23:16 Home Medications Medication Instructions Recorded Confirmed Type cholecalciferol (vitamin D3) 10 10 mcg PO QPM 05/30/25 05/30/25 History mcg (400 unit) tablet (Vitamin D3) Past Med/Surg History Problem List (Updated 05/31/25 @ 01:31 by Oh Cruz MD) Pancreatitis (Acute) Pancreatitis Appendicolith Postoperative abscess (Acute) Elevated liver enzymes Systolic murmur at cardiac apex Colon cancer screening Encounter for pre-operative examination Acquired deviated nasal septum Lesion of tongue Medical History (Updated 05/31/25 @ 01:31 by Oh Cruz MD) Acute appendicitis with localized peritonitis Situational anxiety Dyslipidemia BORDERLINE>NO MEDS Vitamin D deficiency Aortic stenosis mild as of echo 09/2022 - normal EF GERD (gastroesophageal reflux disease) Surgical History History of nasal septoplasty History of laryngoscopy H/O Achilles tendon repair LEFT History of tooth extraction History of surgery suspicious spot removed from face; benign History of colonoscopy Family History Mother Family history of diabetes mellitus Uncle Prostate cancer Other No family history of adverse response to anesthesia Denies family history of Ovarian cancer Myocardial infarction Breast cancer Colorectal cancer Social History Smoking Status: Former smoker Tobacco Type: Cigarettes Age Started Using Tobacco: 20; Age Quit Using Tobacco: 30; Cigarettes Per Day: social; Second Hand Exposure: No; Do You Dip or Chew Tobacco: No; Hx Alcohol Use: Yes Alcohol type: wine Alcohol Intake Frequency: Monthly or Less Hx Substance Use: No Preferred Language: [place] Irish Communication Ability: Effective Visual Impairment: No Limitations Hearing Ability: Normal Pharmacy Resident Required: No Beliefs That Will Affect Care: None marital status: Current Living Situation: Spouse current occupational status: employed current occupation: Professor at [employer] How many Children do You have: 1 How many Children do You have Comment: adopted child Feels Safe at Home: Yes Childhood Exposure to Second-Hand Smoke: No Diet: regular Diet Comment: regular caffeine: Yes (coffee and tea ) during the past year weight has: remained stable Dental Care, Regularly: Yes Physical Activity Frequency: Daily Seatbelt Use: always Sunscreen Use: Yes Assistive Devices: None Review of Systems Review of Systems: As per HPI Physical Exam Physical Exam: GENERAL: Awake alert and oriented in all spheres, afebrile, nontoxic, no acute distress HEAD: Atraumatic, normocephalic EYES: EOM intact, PERRL THROAT: Normal to visual inspection CHEST: Symmetric chest expansion with respirations CARDIO: Regular rate and rhythm, holosystolic murmur in right sternal border PULMONARY: Clear to auscultation bilaterally, normal respiratory effort, no respiratory distress GI: Soft, nontender to palpation, nondistended, no guarding or rebound tenderness, no hematoma noted, healed surgical scars consistent with surgical history EXTREMITIES: No swelling or calf tenderness bilaterally Results & Data Results & Data Vital Signs (Past 12 Hours) Vital Signs Temp Pulse Pulse Resp BP BP Pulse Ox 05/30/25 22:00 36.6 C 55 L 16 117/76 98 05/30/25 21:05 52 L 05/30/25 20:48 36.6 C 55 L 16 130/89 97 05/30/25 20:40 52 L 16 95 05/30/25 20:32 36.7 C 64 17 124/85 94 O2 Del Method 05/30/25 22:00 Room Air 05/30/25 21:05 05/30/25 20:48 Room Air 05/30/25 20:40 Room Air 05/30/25 20:32 Room Air Supervising Physician Co-Signing Physician Notes Attending addendum: I have physically seen this patient, have supervised the medical residents activities, and agree with the H&P unless as otherwise noted. Assessment and Plan: The patient is a 64-year-old male with past medical history including postoperative abdominal abscess, heart murmur, and dyslipidemia. The patient presented to the emergency department with acute onset of periumbilical pain after eating dinner this evening, with duration about 1 hour. The pain was so severe, and had never had this type of pain before, that he presented to the ED for assessment. Acute pancreatitis- Lipase [address] scan of abdomen and pelvis with consideration for enteritis. Appendix had been removed. 7 cm of stool in the rectum, considering mild constipation. Most recent CT of abdomen on 05/28/2025 showed resolution of wall thickening and inflammation of the rectosigmoid colon and perirectal abscess that was seen on CT of 03/21/2025. There is 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 site of the prior abscess which involves the anterior wall of the rectum, the posterior aspect of the sigmoid colon, and also extends towards the seminal vesicles. CT scan of abdomen pelvis today, 2 days later, does not note this complex fistulous tract. Consult general surgery, who ordered initial CT scan of 05/28/2025 Follow serial CBC with differential, chemistry profile and lipase LR at 200 mL/h x 1 L prescribed in the ED, then maintain at 125 mL/h Zofran 4 mg IV every 6 hours as needed Resident Activity Tracking Resident Involvement: Resident Care Provided Care Provided: Adult Hospital Medicine
--- NOTE | 2025-05-31 01:15 | CT Scan Report ---
Exam(s): CT ABDOMEN + PELVIS With Contrast IV Amt: 92ml EXAM: CT Abdomen and Pelvis With Intravenous Contrast CLINICAL HISTORY: Reason for exam: mid abd pain, recent appy. TECHNIQUE: Axial computed tomography images of the abdomen and pelvis with intravenous contrast. CTDI is 16 mGy and DLP is 921 mGy-cm. Automated exposure control was utilized for the study. A dose lowering technique was utilized adhering to the principles of ALARA. CONTRAST: Patient received 92ml of IV contrast COMPARISON: 05/28/2025 FINDINGS: Lung bases: Unremarkable. No mass. No consolidation. ABDOMEN: Liver: Unremarkable. No mass. Gallbladder and bile ducts: Unremarkable. No calcified stones. No ductal dilation. Pancreas: Unremarkable. No mass. No ductal dilation. Spleen: Unremarkable. No splenomegaly. Adrenals: Unremarkable. No mass. Kidneys and ureters: Unremarkable. No solid mass. No hydronephrosis. Stomach and bowel: The stomach is distended with fluid and ingested material but nondilated, increased since previous. PELVIS: Appendix: The appendix appears to have been removed. Bowel loops are nondilated. There are 7 cm of stool in the cecum. No other dilated bowel loops are present. Consider mild constipation. Bladder: The urinary bladder is partially distended but within normal limits. Reproductive: Unremarkable as visualized. ABDOMEN and PELVIS: Intraperitoneal space: Slight mesenteric edema in the central abdomen associated with several nondilated small bowel loops and a section of the sigmoid colon as well as a trace amount of free fluid in the pelvis, increased since previous. No free air. Bones/joints: Mild degenerative changes in the spine. No acute fracture or subluxation. Soft tissues: Unremarkable. Vasculature: Unremarkable. No abdominal aortic aneurysm. Lymph nodes: Unremarkable. No enlarged lymph nodes. IMPRESSION: 1. Slight mesenteric edema in the central abdomen associated with several nondilated small bowel loops and a section of the sigmoid colon as well as a trace amount of free fluid in the pelvis, increased since previous. No pneumoperitoneum or abscess is seen. Consider enteritis. 2. The appendix appears to have been removed. Bowel loops are nondilated. There are 7 cm of stool in the cecum. No other dilated bowel loops are present. Consider mild constipation. Electronically signed by: Og Marie MD 05/31/25 01:14 AM
--- NOTE | 2025-05-31 01:31 | Emergency Department Note ---
Impression & Plan Pancreatitis ED Provider Note NAME: AIDEN JAQUEZ AGE: 64 SEX: Male INFORMANT: Patient ED PROVIDER(S): Oh Cruz MD CHIEF COMPLAINT: Abdominal pain PLAN: Disposition: Admitted Outpatient prescription management: none Referral: None MEDICAL DECISION MAKING: Patient presented with abdominal pain that was improving without direct analgesia. He had mild tenderness but no peritoneal findings on examination. His vital signs were stable. Patient had an unremarkable CBC and chemistry panel. Patient was found to have an elevated lipase consistent with pancreatitis. CT imaging was ordered. Patient was started on IV fluid hydration. Consultation was made with Dr. Vaibhav Singleton of the [facility] service. Patient was evaluated in the ER for further management. Care/management discussed with: social media manager Level of care consideration(s): After review of the information above and other included data, I feel the patient requires escalation of care to admission Triage Nursing notes: reviewed and agree them. Vital Signs: reviewed and remarkable for no significant abnormalities Additional History obtained from: none Chronic Medical/Social Conditions affecting care: none Prior/ Outside/ External records reviewed: none Differential Diagnosis: Appendicitis, testicular torsion, infections, diverticulitis, UTI, obstruction, mesenteric ischemia, aortic pathology, inflammatory bowel disease, renal colic, PUD, pancreatitis, biliary pathology, hernia, volvulus, constipation, as well as other pathologies. Diagnostics, independently interpreted by me: ECG: none Cardiac Monitoring: Cardiac monitoring ordered by me: The patient was placed on continuous cardiac monitoring and observed. It revealed a normal sinus rhythm at 71 beats per minute without ectopy or evidence of dysrhythmia. Medical decision rules: none Imaging studies: CT scan of the abdomen pelvis reveals some mild enteritis. No abscess or obvious pancreatic issues. HPI: 64 year old Male arrives for evaluation of acute onset of abdominal pain in the periumbilical region. Patient dates he was eating dinner and then shortly after got intense pain in his abdomen. It was a 7 out of 10. It did not radiate. He noted taking no medication for this. Patient did have a normal bowel movement afterwards. Pain gradually has subsided although he is rating it as a 3 out of 10 at this point. Declines analgesia. Patient notes several months ago he had an appendectomy and then had an abscess that was treated surgically. Patient states that he feels like he recovered well after his 2 surgeries in the month of February. Pt denies LOC, headache, fevers, chills, diaphoresis, visual changes, neck pain, chest pain, breathing difficulties, nausea, vomiting, back pain, melena, hematochezia, urinary symptoms, numbness, weakness, lymphadenopathy, rash, or other complaints. PAST MEDICAL HISTORY: See Below, postoperative abscess PAST SURGICAL HISTORY: See Below, appendectomy SOCIAL HISTORY: See Below, HOME MEDICATIONS: See Below ALLERGIES: See Below VITALS: See Below PHYSICAL EXAMINATION: GENERAL: Awake, alert, well-appearing, in no distress HENT: Normocephalic, atraumatic. Oropharynx unremarkable. EYES: Normal conjunctiva. Sclera non-icteric. NECK: Inspection normal. Non-tender. Supple. No nuchal rigidity. FROM. No masses. RESPIRATORY: Clear to auscultation. No wheezes. No rales. Normal respiratory effort. CARDIAC: Normal rate. Normal rhythm. No murmurs. No rubs. Extremities warm and well perfused. Pulses equal. No JVD. GI: Soft, non-distended. Mild periumbilical tenderness to palpation. No rebound or guarding. No masses. RECTAL: Deferred. MUSCULOSKELETAL: Atraumatic. Chest examination reveals no tenderness. The back is symmetrical on inspection without obvious abnormality. There is no CVA tenderness to palpation. No joint edema. LOWER EXTREMITIES: Calves are equal size bilaterally and non-tender. No edema. No discoloration. NEURO: Normal sensorium. No sensory or motor deficits noted. SKIN: No rash or jaundice noted. PROCEDURES: none CRITICAL CARE: none OBSERVATION NOTE: none Past Med/Surg History Problem List (Updated 05/31/25 @ 01:31 by Oh Cruz MD) Pancreatitis (Acute) Pancreatitis Appendicolith Postoperative abscess (Acute) Elevated liver enzymes Systolic murmur at cardiac apex Colon cancer screening Encounter for pre-operative examination Acquired deviated nasal septum Lesion of tongue Medical History (Updated 05/31/25 @ 01:31 by Oh Cruz MD) Acute appendicitis with localized peritonitis Situational anxiety Dyslipidemia BORDERLINE>NO MEDS Vitamin D deficiency Aortic stenosis mild as of echo 09/2022 - normal EF GERD (gastroesophageal reflux disease) Surgical History History of nasal septoplasty History of laryngoscopy H/O Achilles tendon repair LEFT History of tooth extraction History of surgery suspicious spot removed from face; benign History of colonoscopy Family History Mother Family history of diabetes mellitus Uncle Prostate cancer Other No family history of adverse response to anesthesia Denies family history of Ovarian cancer Myocardial infarction Breast cancer Colorectal cancer Social History Smoking Status: Former smoker Tobacco Type: Cigarettes Age Started Using Tobacco: 20; Age Quit Using Tobacco: 30; Cigarettes Per Day: social; Second Hand Exposure: No; Do You Dip or Chew Tobacco: No; Hx Alcohol Use: Yes Alcohol type: wine Alcohol Intake Frequency: Monthly or Less Hx Substance Use: No Preferred Language: Slovak Communication Ability: Effective Visual Impairment: No Limitations Hearing Ability: Normal Business Intelligence Administrator Required: No Beliefs That Will Affect Care: None marital status: Current Living Situation: Spouse current occupational status: employed current occupation: Professor at [employer] How many Children do You have: 1 How many Children do You have Comment: adopted child Feels Safe at Home: Yes Childhood Exposure to Second-Hand Smoke: No Diet: regular Diet Comment: regular caffeine: Yes (coffee and tea ) during the past year weight has: remained stable Dental Care, Regularly: Yes Physical Activity Frequency: Daily Seatbelt Use: always Sunscreen Use: Yes Assistive Devices: None Allergies Allergies Allergy/AdvReac Type Severity Reaction Status Date / Time No Known Allergies Allergy Verified 05/30/25 23:16 Home Meds Home Medications Medication Instructions Recorded Confirmed cholecalciferol (vitamin D3) 10 10 mcg PO QPM 05/30/25 05/30/25 mcg (400 unit) tablet (Vitamin D3) Results & Data (ED) Vital Signs Vital Signs - 24 hr 05/30/25 20:32 05/30/25 20:40 05/30/25 20:48 Temperature 36.7 C 36.6 C Temperature Source Temporal Artery Scan Oral Pulse Rate 64 52 L Pulse Rate [Right Finger] 55 L Pulse Rhythm Regular Pulse Strength Normal Respiratory Rate 17 16 16 Respiratory Effort / Characteristics Non-Labored Spontaneous Non-Labored Spontaneous Respiratory Depth Normal Normal Respiratory Pattern Regular Regular Blood Pressure 124/85 Blood Pressure [Right Arm] 130/89 Blood Pressure Mean 98 Blood Pressure Mean [Right Arm] 102 Blood Pressure Position Sitting Pulse Oximetry 94 95 97 Oxygen Delivery Method Room Air Room Air Room Air Sepsis Recent Fever Within 48 Hours No Sepsis New/Unexplained Change in Mental Status N/A Sepsis Action Taken by Nursing No Action Required 05/30/25 21:05 05/30/25 22:00 05/30/25 23:00 Temperature 36.6 C Temperature Source Oral Pulse Rate 52 L 52 L Pulse Rate [Right Finger] 55 L Pulse Rhythm Pulse Strength Respiratory Rate 16 17 Respiratory Effort / Characteristics Non-Labored Spontaneous Respiratory Depth Normal Respiratory Pattern Regular Blood Pressure 106/69 Blood Pressure [Right Arm] 117/76 Blood Pressure Mean 78 Blood Pressure Mean [Right Arm] 89 Blood Pressure Position Pulse Oximetry 98 97 Oxygen Delivery Method Room Air Room Air Sepsis Recent Fever Within 48 Hours Sepsis New/Unexplained Change in Mental Status Sepsis Action Taken by Nursing 05/31/25 00:00 05/31/25 00:56 05/31/25 01:20 Temperature 36.8 C Temperature Source Oral Pulse Rate 54 L 51 L 71 Pulse Rate [Right Finger] Pulse Rhythm Pulse Strength Respiratory Rate 16 18 Respiratory Effort / Characteristics Respiratory Depth Respiratory Pattern Blood Pressure 114/73 123/48 L Blood Pressure [Right Arm] Blood Pressure Mean 80 Blood Pressure Mean [Right Arm] Blood Pressure Position Pulse Oximetry 96 98 Oxygen Delivery Method Room Air Room Air Sepsis Recent Fever Within 48 Hours Sepsis New/Unexplained Change in Mental Status Sepsis Action Taken by Nursing Laboratory Data 05/30/25 21:00 05/30/25 21:00 Lab Results 05/30/25 Range/Units 21:00 WBC 6.35 (4.8-10.8) K/ul RBC 5.31 (4.70-6.10) M/uL Hgb 16.3 (14.0-18.0) g/dl Hct 46.6 (42.0-52.0) % MCV 87.8 (80.0-100.0) fL MCH 30.7 (25.0-34.0) pg MCHC 35.0 (32.0-36.0) g/dL RDW Std Deviation 46.1 (36.4-46.3) fL RDW Coeff of Anahy 14.3 (11.5-14.5) % Plt Count 222 (130-400) K/uL MPV 9.7 (9.4-12.4) fL Immature Gran % (Auto) 0.2 % Neut % (Auto) 49.5 % Lymph % (Auto) 27.6 % Charles % (Auto) 7.1 % Eos % (Auto) 15.1 % Baso % (Auto) 0.5 % Neut # (Auto) 3.15 (1.40-6.50) K/uL Lymph # (Auto) 1.75 (1.20-3.40) K/uL Charles # (Auto) 0.45 (0.11-0.59) K/uL Eos # (Auto) 0.96 H (0.00-0.50) K/uL Baso # (Auto) 0.03 (0.00-0.20) K/uL Immature Gran # (Auto) 0.01 (0.01-0.20) K/uL Sodium 138 (136-145) mmol/L Potassium 3.9 (3.5-5.1) mmol/L Chloride 104 (98-107) mmol/L Carbon Dioxide 27 (21-32) mmol/L Anion Gap 7 (3-11) BUN 14 (6-23) mg/dl Creatinine 0.94 (0.6-1.4) mg/dl Est Cr Clr Drug Dosing 84.6 ml/min eGFR 90.52 BUN/Creatinine Ratio 14.9 (10-20) Glucose 94 (70-99(Fasting)) mg/dl Calcium 9.1 (8.6-10.3) mg/dl Total Bilirubin 0.3 (0.2-1.0) mg/dl AST 20 (13-39) U/L ALT 30 (7-52) U/L Alkaline Phosphatase 72 (34-104) U/L Total Protein 7.0 (6.0-8.3) gm/dl Albumin 4.2 (3.4-5.0) gm/dl Globulin 2.8 (2.5-4.0) gm/dl Albumin/Globulin Ratio 1.5 (0.9-2) Triglycerides 119 (0-150) mg/dl Cholesterol 226 H (0-200) mg/dl HDL Cholesterol 46 mg/dl Lipase 1864 H (11-82) U/L Urine Color Yellow Urine Appearance Clear (Clear) Urine pH 5.5 (4.5-7.5) Ur Specific Polo 1.012 (1.000-1.030) Urine Protein Negative (Negative) Urine Glucose (UA) Negative (Negative) Urine Ketones Trace H (Negative) Urine Blood Negative (Negative) Urine Nitrite Negative (Negative) Urine Bilirubin Negative (Negative) Urine Urobilinogen Negative (Negative) Ur Leukocyte Esterase Negative (Negative) Urine Comment Administered Medications Lactated Ringer's (Lr) 1,000 mls @ 200 mls/hr IV .Q5H DARRELL Stop: 06/02/25 22:29 Last Admin: 05/30/25 22:40 Dose: 200 mls/hr Documented By: CARL Discontinued Medications Ioversol (Optiray 320 100ml) 92 ml IV ONCE ONE Stop: 05/30/25 22:14 Last Admin: 05/30/25 22:13 Dose: 92 ml Documented By: ARSHI Imaging Data Radiologist's Impression: Abdomen/Pelvis CT 05/30/25 20:41 Exam(s): CT ABDOMEN + PELVIS With Contrast IV Amt: 92ml EXAM: CT Abdomen and Pelvis With Intravenous Contrast CLINICAL HISTORY: Reason for exam: mid abd pain, recent appy. TECHNIQUE: Axial computed tomography images of the abdomen and pelvis with intravenous contrast. CTDI is 16 mGy and DLP is 921 mGy-cm. Automated exposure control was utilized for the study. A dose lowering technique was utilized adhering to the principles of ALARA. CONTRAST: Patient received 92ml of IV contrast COMPARISON: 05/28/2025 FINDINGS: Lung bases: Unremarkable. No mass. No consolidation. ABDOMEN: Liver: Unremarkable. No mass. Gallbladder and bile ducts: Unremarkable. No calcified stones. No ductal dilation. Pancreas: Unremarkable. No mass. No ductal dilation. Spleen: Unremarkable. No splenomegaly. Adrenals: Unremarkable. No mass. Kidneys and ureters: Unremarkable. No solid mass. No hydronephrosis. Stomach and bowel: The stomach is distended with fluid and ingested material but nondilated, increased since previous. PELVIS: Appendix: The appendix appears to have been removed. Bowel loops are nondilated. There are 7 cm of stool in the cecum. No other dilated bowel loops are present. Consider mild constipation. Bladder: The urinary bladder is partially distended but within normal limits. Reproductive: Unremarkable as visualized. ABDOMEN and PELVIS: Intraperitoneal space: Slight mesenteric edema in the central abdomen associated with several nondilated small bowel loops and a section of the sigmoid colon as well as a trace amount of free fluid in the pelvis, increased since previous. No free air. Bones/joints: Mild degenerative changes in the spine. No acute fracture or subluxation. Soft tissues: Unremarkable. Vasculature: Unremarkable. No abdominal aortic aneurysm. Lymph nodes: Unremarkable. No enlarged lymph nodes. IMPRESSION: 1. Slight mesenteric edema in the central abdomen associated with several nondilated small bowel loops and a section of the sigmoid colon as well as a trace amount of free fluid in the pelvis, increased since previous. No pneumoperitoneum or abscess is seen. Consider enteritis. 2. The appendix appears to have been removed. Bowel loops are nondilated. There are 7 cm of stool in the cecum. No other dilated bowel loops are present. Consider mild constipation. Electronically signed by: Og Marie MD 05/31/25 01:14 AM Discharge Plan Visit Data Chief Complaint: Abdominal Pain Stated Complaint: ABD PAIN ED Provider: Oh Cruz Discharge Problem: Pancreatitis Patient Disposition: Admitted As Inpatient Condition: Good Discharge Instructions Interventions: ED Discharge Assessment Last Done: 05/31/25 01:20 Forms Stand Alone Forms: My [employer] Prescriptions Prescriptions: No Action cholecalciferol (vitamin D3) [Vitamin D3] 10 mcg (400 unit) Tablet 10 mcg PO QPM Referrals Referrals: Gallito Rodriguez MD [Primary Care Provider] -
[2025-05-31 01:33] LABS: Cholesterol 226.0 mg/dl (0-200); HDL Cholesterol 46.0 mg/dl; Triglycerides 119.0 mg/dl (0-150)
--- NOTE | 2025-05-31 02:01 | Billing Data ---
Date of Service May 31, 2025 Coding Level of Care Code 83738 INT INP/OBS CARE
[2025-05-31] MEDS ORDERED: HYDROmorphone INJ 0.5 MG/0.5 ML SYR IV PRN (02:09)
[2025-05-31] MEDS ORDERED: ONDANSETRON INJ 2 MG/ML 2 ML VIAL IV PRN (02:09)
[2025-05-31] MEDS ORDERED: KETOROLAC TROMETHAMINE 15 MG/ML VIAL IV PRN (02:09)
[2025-05-31] MEDS: LACTATED RINGER'S 1,000 ML IV SCH (03:39)
[2025-05-31 08:53] LABS: Hematocrit (blood only) 42.7 % (42.0-52.0); Hemoglobin 14.4 g/dl (14.0-18.0); Immature Granulocytes # (auto) 0.02 K/uL (0.01-0.20); Immature Granulocytes % (auto) 0.3 %; Mean Corpuscular Hemoglobin 30.2 pg (25.0-34.0); Mean Corpuscular Volume 89.5 fL (80.0-100.0); Platelet Count 179 K/uL (130-400); RDW Standard Deviation 46.8 fL (36.4-46.3); Red Blood Count 4.77 M/uL (4.70-6.10); White Blood Count 6.13 K/ul (4.8-10.8)
--- NOTE | 2025-05-31 09:01 | Hospitalist Progress Note ---
Date of Service May 31, 2025 Assessment & Plan (1) Constipation: (2) Enteritis: (3) Pancreatitis: (4) Postoperative abscess: (5) Dyslipidemia: Plan Patient is a 64-year-old male with past medical history of hyperlipidemia and vitamin D deficiency who was admitted for acute abdominal pain suspected to be acute pancreatitis, however could be related to constipation or abdominal surgical site pain. No leukocytosis and stable LFTs reassuring for lack of infection or acute CBD obstruction, respectively. No surgery warranted at this time, though admission still necessary for further vital sign monitoring, trending of pertinent labs, and to ensure tolerance of diet. Constipation At moderate-severe based on stool burden visualized on CT abd/pelvis 05/30/25 Very likely contributor to pt's abdominal pain day prior based on timing shortly after eating dinner, likely related to peristalsis against stool burden Miralax 17g daily was initially refused, but when later understood that there was a very significant stool burden pt was open to GoLytely Ordered GoLytely for stool disimpaction Continue regular diet as tolerated Elevated lipase: Acute pancreatitis vs Enteritis Lipase 1863; however LFTs, bilirubin, and alk phos within normal limits, CT abd/pelvis without evidence of obvious obstruction, however showing some small bowel edema suggestive of enteritis; normal white count Increases suspicion of enteritis as cause of elevated lipase due to increased intestinal permeability Started experiencing 7/10 constant lower abdominal tenderness after his dinner, resolved by the time of ER evaluation Denies alcohol use, new medications, or [id number] substances Had been on rosuvastatin in the past, but this was stopped due to elevated liver enzymes as reported; triglycerides 119 (WNL); T cholesterol 226, LDL 156 s/p 2L IV LR; clear liquid diet ordered for breakfast as patient not having any abd pain nor nausea/vomiting at this time May advance diet as tolerated Zofran IV as needed for nausea Pain control with Toradol as needed for moderate pain and Dilaudid as needed for severe pain, though has not needed any analgesics thus far Postoperative abscess with subsequent fistula formation CTAP from 05/28 showing wall thickening and inflammation of the rectosigmoid colon seen on 03/21/2025 has resolved, as has the perirectal abscess seen at the time, no residual fluid collection, 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 site of the prior abscess which involves the anterior wall of the rectum, the posterior aspect of the sigmoid colon, and also extends towards the seminal vesicles, and no evidence of bowel obstruction CTAP 05/30/25 showing mild small bowel edema suggestive of enteritis, likely contributor of elevated lipase Follow up with general surgery as an outpatient Gen surg consulted, recommends watching at least another overnight into 06/01/25, no surgery planned in the next day Given the patient is currently clinically stable and has not presented any fevers or leukocytosis, will defer initiating any antibiotics at this time. Dispo: MedSurg VTE prophylaxis: SCDs Diet: regular CODE: Full Admission and Anticipated Discharge Date Admission Date: May 30, 2025 Supervising Physician Co-Signing Physician Notes I personally examined the patient and verified all flores points of history and exam, discussed case, and agree with decision making with Dr Cooper feeling better. But attendance and tolerated a regular diet. Pain was very intense for a few hours and then essentially went away. No notable nausea or vomiting. Vitals noted, in general he is awake and alert pleasant no distress. HEENT normocephalic atraumatic mucous membranes moist. Abdomen this soft mild to moderately distended but nontender no guarding rebound or rigidity most notably no epigastric tenderness. Skin shows no rashes no pallor or icterus. Labs and diagnostics noted. CT scans from essentially the entirety of this year reviewed and reviewed with patient/ abdominal paininitially thought to probably be pancreatitisbut I suspect it is more intestinal related and the lipase is probably up just from intestinal stretch/nonspecific. The only real case "for" pancreatitis would be abdominal pain and an elevated lipase; at the same time the case against would be that he does not have epigastric pain, his pain got better extremely quickly, there was no vomiting, he does not have any pancreatic changes on CT consistent with pancreatitis, and without alcohol/evidence of gallstones/high triglycerides there would not be a real clear-cut cause. His CT shows quite a significant amount of stool, and potentially a degree of small bowel enteritis. I think given that he was eating, that probably created some peristalsis which then either created pain with the enteritis, or (given that he does not really show enteritis symptoms either and I wonder if this is a false positive on CT) it was simply pain from peristalsis. We discussed this in depth/in detail. then discussed optionshe would prefer to just clear things out as best as possiblebowel prep ordered otherwise as above. Subjective Andrea was seen and evaluated at bedside this AM, appearing in no acute distress, Ping present. Reports feeling no pain or discomfort this morning, no major concerns overnight. Notes he is willing to try a clear liquid diet and to advance it to full liquids / regular diet as tolerated. HPI: states yesterday for lunch he had a pulled pork sandwich, some potato chips, and a biscuit from a restaurant- no issues after that meal but typically doesn't eat those items, doesn't recall any off tastes or appearances - notes they had chicken with green beans last night for dinner, nothing fried or fatty, no concerns about taste or appearance; also notes having a good amount of peanut butter - recalls sudden onset of 7/10 lower middle abdominal pain about 15min after finishing dinner, without radiation to either side or back - had a "regular" sized bowel movement shortly after which wasn't overly loose or hard or with red streaking, but denies significant improvement of the pain until he got to the ER, overall pain lasted about an hour before going down to a 3/10 and resolving overnight - denies any significant alcohol use, any new drugs, or abdominal trauma Notes he had abdominal surgery for a post-operative abscess in February 2025 after a ppendectomy, was on antibiotics including oral vancomycin for C. diff, has resolved. Physical Exam Physical Exam: Gen: A&Ox3, no acute distress CV: RRR, holosystolic murmur appreciated, otherwise +s1/s2, no m/r/g, radial pulses 2+ b/l Resp: Clear to auscultation b/l, normal respiratory effort, no respiratory distress GI/Abd: normoactive bowel sounds, vertical well-healed infraumbilical surgical scar present, slight voluntary guarding but otherwise soft and nontender to palpation, nondistended, no guarding or rebound tenderness, no hematoma noted; negative knowles sign, no ecchymosis appreciated Ext: No swelling or calf tenderness b/l MSK: 5/5 strength in b/l UE and LE Neuro: no facial droop, no focal deficits, speech intact Results & Data Results & Data Vital Signs (Past 12 Hours) Vital Signs Temp Pulse Pulse Resp BP BP Pulse Ox 05/31/25 08:12 36.6 C 53 L 18 110/71 99 05/31/25 02:09 36.7 C 52 L 18 137/79 96 05/31/25 02:00 36.7 C 52 L 18 137/76 96 05/31/25 01:20 36.8 C 71 18 123/48 L 98 05/31/25 00:56 51 L 05/31/25 00:00 54 L 16 114/73 96 05/30/25 23:00 52 L 17 106/69 97 05/30/25 22:00 36.6 C 55 L 16 117/76 98 05/30/25 21:05 52 L O2 Del Method 05/31/25 08:12 Room Air 05/31/25 02:09 Room Air 05/31/25 02:00 Room Air 05/31/25 01:20 Room Air 05/31/25 00:56 05/31/25 00:00 Room Air 05/30/25 23:00 Room Air 05/30/25 22:00 Room Air 05/30/25 21:05 Resident Activity Tracking Resident Involvement: Resident Care Provided Care Provided: Adult Hospital Medicine (1) Constipation Constipation type: unspecified constipation type Qualified Code(s): K59.00 - Constipation, unspecified (3) Pancreatitis Acute pancreatitis complication: unspecified Chronicity: acute Pancreatitis type: unspecified pancreatitis type Qualified Code(s): K85.90 - Acute pancreatitis without necrosis or infection, unspecified
[2025-05-31 09:15] LABS: Anion Gap 5.0 (3-11); Blood Urea Nitrogen 12.0 mg/dl (6-23); Calcium 8.9 mg/dl (8.6-10.3); Carbon Dioxide 29.0 mmol/L (21-32); Chloride 108.0 mmol/L (98-107); Creatinine Clr Calc Pharmacy 94.6 ml/min; Glucose 92.0 mg/dl (70-99(Fasting)); Potassium 4.0 mmol/L (3.5-5.1); Sodium 142.0 mmol/L (136-145)
[2025-05-31] MEDS: POLYETHYLENE (MIRALAX) 17 GM PACK PO SCH (09:56)
--- NOTE | 2025-05-31 12:13 | Surgery Consultation ---
Date of Consultation May 31, 2025 Assessment & Plan (1) Pancreatitis: Symptoms appear to be related to pancreatitis of unknown etiology. On his outpatient CT scan he did have some findings concerning for possible fistulous tracts, however these do not appear acute and can be followed up as an outpatient. Diet as tolerated per medicine No surgical intervention at this time Follow-up with Dr. Hamilton or Dr. Swan as an outpatient Consider oral outpatient antibiotics Surgery will sign off, call with questions or concerns (2) Postoperative abscess: History of Present Illness Reason for Consultation: Abdominal pain, history of appendectomy and abscess Attending Physician: Gurmeet Juarez DO History of Present Illness 64-year-old male known to service from prior appendectomy complicated by abscess and retained appendicolith, status post exploratory laparotomy with drainage of abscess. He has been doing well and has been followed by Dr. Hamilton and had a repeat CAT scan which showed a possible fistulous tract. He then developed significant abdominal pain yesterday that felt similar to his prior episodes. Since then the pain is resolved. He did have some nausea with this. No fevers, not currently on outpatient antibiotics. Allergies Allergy/AdvReac Type Severity Reaction Status Date / Time No Known Allergies Allergy Verified 05/30/25 23:16 Home Medications Medication Instructions Recorded Confirmed Type cholecalciferol (vitamin D3) 10 10 mcg PO QPM 05/30/25 05/30/25 History mcg (400 unit) tablet (Vitamin D3) Patient History Medical History (Updated 05/31/25 @ 01:31 by Oh Cruz MD) Acute appendicitis with localized peritonitis Situational anxiety Dyslipidemia BORDERLINE>NO MEDS Vitamin D deficiency Aortic stenosis mild as of echo 09/2022 - normal EF GERD (gastroesophageal reflux disease) Surgical History History of nasal septoplasty History of laryngoscopy H/O Achilles tendon repair LEFT History of tooth extraction History of surgery suspicious spot removed from face; benign History of colonoscopy Family History Mother Family history of diabetes mellitus Uncle Prostate cancer Other No family history of adverse response to anesthesia Denies family history of Ovarian cancer Myocardial infarction Breast cancer Colorectal cancer Social History Smoking Status: Former smoker Tobacco Type: Cigarettes Age Started Using Tobacco: 20; Age Quit Using Tobacco: 30; Cigarettes Per Day: social; Second Hand Exposure: No; Do You Dip or Chew Tobacco: No; Hx Alcohol Use: No Hx Substance Use: No Preferred Language: Portuguese Communication Ability: Effective Visual Impairment: No Limitations Hearing Ability: Normal Calender Operator Required: No Beliefs That Will Affect Care: None marital status: Current Living Situation: Spouse current occupational status: employed current occupation: Professor at [employer] How many Children do You have: 1 How many Children do You have Comment: adopted child Feels Safe at Home: Yes Childhood Exposure to Second-Hand Smoke: No Diet: regular Diet Comment: regular caffeine: Yes (coffee and tea ) during the past year weight has: remained stable Dental Care, Regularly: Yes Physical Activity Frequency: Daily Seatbelt Use: always Sunscreen Use: Yes Assistive Devices: Glasses Review of Systems Review of Systems: All systems reviewed & are unremarkable except as noted in HPI & below Physical Exam Constitutional: WD/WN, vitals as above Respiratory: normal respiratory effort, lungs clear to auscultation Cardiovascular: RRR, no murmur, no edema Gastrointestinal (Abdomen): Inspection/Auscultation: + abdominal surgical scar Percussion/Palpation: + abdomen tender (Minimal tenderness to palpation) and abdomen soft; no guarding and abdomen not rigid Results & Data Vital Signs (Past 12 Hours) Vital Signs Temp Pulse Pulse Resp BP BP Pulse Ox 05/31/25 08:12 36.6 C 53 L 18 110/71 99 05/31/25 02:09 36.7 C 52 L 18 137/79 96 05/31/25 02:00 36.7 C 52 L 18 137/76 96 05/31/25 01:20 36.8 C 71 18 123/48 L 98 05/31/25 00:56 51 L O2 Del Method 05/31/25 08:12 Room Air 05/31/25 02:09 Room Air 05/31/25 02:00 Room Air 05/31/25 01:20 Room Air 05/31/25 00:56 Laboratory Results Laboratory Results - last 24 hr 05/30/25 05/31/25 21:00 08:12 WBC 6.35 6.13 RBC 5.31 4.77 Hgb 16.3 14.4 Hct 46.6 42.7 MCV 87.8 89.5 MCH 30.7 30.2 MCHC 35.0 33.7 RDW Std Deviation 46.1 46.8 H RDW Coeff of Anahy 14.3 14.4 Plt Count 222 179 MPV 9.7 10.1 Immature Gran % (Auto) 0.2 0.3 Neut % (Auto) 49.5 55.1 Lymph % (Auto) 27.6 19.1 Delta % (Auto) 7.1 5.9 Eos % (Auto) 15.1 19.1 Baso % (Auto) 0.5 0.5 Neut # (Auto) 3.15 3.38 Lymph # (Auto) 1.75 1.17 L Delta # (Auto) 0.45 0.36 Eos # (Auto) 0.96 H 1.17 H Baso # (Auto) 0.03 0.03 Immature Gran # (Auto) 0.01 0.02 Sodium 138 142 Potassium 3.9 4.0 Chloride 104 108 H Carbon Dioxide 27 29 Anion Gap 7 5 BUN 14 12 Creatinine 0.94 0.84 Est Cr Clr Drug Dosing 84.6 94.6 eGFR 90.52 97.38 BUN/Creatinine Ratio 14.9 14.3 Glucose 94 92 Calcium 9.1 8.9 Total Bilirubin 0.3 AST 20 ALT 30 Alkaline Phosphatase 72 Total Protein 7.0 Albumin 4.2 Globulin 2.8 Albumin/Globulin Ratio 1.5 Triglycerides 119 Cholesterol 226 H LDL Cholesterol, Calc 156 VLDL Cholesterol, Calc 24 HDL Cholesterol 46 Cholesterol/HDL Ratio 4.9 Lipase 1864 H Urine Color Yellow Urine Appearance Clear Urine pH 5.5 Ur Specific [place] 1.012 Urine Protein Negative Urine Glucose (UA) Negative Urine Ketones Trace H Urine Blood Negative Urine Nitrite Negative Urine Bilirubin Negative Urine Urobilinogen Negative Ur Leukocyte Esterase Negative Urine Comment Diagnostic Findings CT scan from 30 May and from 28 May personally viewed interpreted. On the recent CT scan there appears to be some inflammation in the mesentery, given his lipase may be consistent with pancreatitis. No obvious abscess or fluid collection. Fistulous tracts demonstrated on prior CT. Abdomen/Pelvis CT 05/30/25 20:41 Exam(s): CT ABDOMEN + PELVIS With Contrast IV Amt: 92ml EXAM: CT Abdomen and Pelvis With Intravenous Contrast CLINICAL HISTORY: Reason for exam: mid abd pain, recent appy. TECHNIQUE: Axial computed tomography images of the abdomen and pelvis with intravenous contrast. CTDI is 16 mGy and DLP is 921 mGy-cm. Automated exposure control was utilized for the study. A dose lowering technique was utilized adhering to the principles of ALARA. CONTRAST: Patient received 92ml of IV contrast COMPARISON: 05/28/2025 FINDINGS: Lung bases: Unremarkable. No mass. No consolidation. ABDOMEN: Liver: Unremarkable. No mass. Gallbladder and bile ducts: Unremarkable. No calcified stones. No ductal dilation. Pancreas: Unremarkable. No mass. No ductal dilation. Spleen: Unremarkable. No splenomegaly. Adrenals: Unremarkable. No mass. Kidneys and ureters: Unremarkable. No solid mass. No hydronephrosis. Stomach and bowel: The stomach is distended with fluid and ingested material but nondilated, increased since previous. PELVIS: Appendix: The appendix appears to have been removed. Bowel loops are nondilated. There are 7 cm of stool in the cecum. No other dilated bowel loops are present. Consider mild constipation. Bladder: The urinary bladder is partially distended but within normal limits. Reproductive: Unremarkable as visualized. ABDOMEN and PELVIS: Intraperitoneal space: Slight mesenteric edema in the central abdomen associated with several nondilated small bowel loops and a section of the sigmoid colon as well as a trace amount of free fluid in the pelvis, increased since previous. No free air. Bones/joints: Mild degenerative changes in the spine. No acute fracture or subluxation. Soft tissues: Unremarkable. Vasculature: Unremarkable. No abdominal aortic aneurysm. Lymph nodes: Unremarkable. No enlarged lymph nodes. IMPRESSION: 1. Slight mesenteric edema in the central abdomen associated with several nondilated small bowel loops and a section of the sigmoid colon as well as a trace amount of free fluid in the pelvis, increased since previous. No pneumoperitoneum or abscess is seen. Consider enteritis. 2. The appendix appears to have been removed. Bowel loops are nondilated. There are 7 cm of stool in the cecum. No other dilated bowel loops are present. Consider mild constipation. Electronically signed by: Og Marie MD 05/31/25 01:14 AM PG Care Time/CCT Total # of Minutes Spent Total Time Spent with Patient: Total time spent is greater than 50% in coordination of care (as documented) at patient's floor/unit and/or counseling patient: Coding Level of Care Code 68891 IN/OBS CONSULT LVL 4,60M Diagnoses Pancreatitis K85.90 Postoperative abscess T81.49XA
[2025-05-31] MEDS ORDERED: POLYETHYLENE (MIRALAX) 17 GM PACK PO PRN (15:20)
[2025-05-31] MEDS: LAVAGE SOLUTION 4000ML PO SCH (16:24)
--- NOTE | 2025-05-31 17:30 | Billing Data ---
Date of Service May 31, 2025 Coding Level of Care Code 54168 SUB INP/OBS CARE
[2025-06-01 00:45] VITALS: RESP 16
[2025-06-01 06:37] LABS: Hematocrit (blood only) 39.5 % (42.0-52.0); Hemoglobin 14.0 g/dl (14.0-18.0); Immature Granulocytes # (auto) 0.01 K/uL (0.01-0.20); Immature Granulocytes % (auto) 0.2 %; Mean Corpuscular Hemoglobin 31.5 pg (25.0-34.0); Mean Corpuscular Volume 89.0 fL (80.0-100.0); Platelet Count 179 K/uL (130-400); RDW Standard Deviation 46.5 fL (36.4-46.3); Red Blood Count 4.44 M/uL (4.70-6.10); White Blood Count 6.16 K/ul (4.8-10.8)
[2025-06-01 07:10] LABS: Anion Gap 8.0 (3-11); Blood Urea Nitrogen 9.0 mg/dl (6-23); Calcium 8.8 mg/dl (8.6-10.3); Carbon Dioxide 28.0 mmol/L (21-32); Chloride 107.0 mmol/L (98-107); Creatinine Clr Calc Pharmacy 93.5 ml/min; Glucose 92.0 mg/dl (70-99(Fasting)); Potassium 4.0 mmol/L (3.5-5.1); Sodium 143.0 mmol/L (136-145)
[2025-06-01 07:29] VITALS: BP 101/59; PULSE 51; TEMP 97.9; O2SAT 97
--- NOTE | 2025-06-01 10:18 | Discharge Summary ---
Date of Service June 01, 2025 Admission HPI Per Admitting Provider Patient is a 64-year-old male with past medical history of hyperlipidemia and vitamin D deficiency who came to the emergency department after sudden onset of abdominal pain. Patient states that he was having dinner that consisted of vegetables and chicken, and during/after his dinner he suddenly started experiencing epigastric/periumbilical abdominal pain. Other associated symptoms include nausea without vomiting and some weakness. Denies having any other symptoms such as chest pain, shortness of breath, dyspnea on exertion, chills, fevers, diarrhea, or any other systemic symptom. Prior to the episode from this evening, patient denies having any episodes of abdominal pain. At the time of my evaluation, patient not experiencing any abdominal pain or nausea. Denies any addition of new medications or [id number] substances, has not drunk alcoholic beverages for the last 2 months, denies any tobacco use or any other illicit substance use. Of note, patient did have a laparoscopic appendectomy by Dr. Stewart on 03/03, after which she was noted to have a pelvic abscess a few weeks after. He has been following with the general surgery clinic for this concern, and had an exploratory laparotomy with washout of intra-abdominal abscess with retained appendicolith on 03/21 and then discharged with a drain and a 14-day course of Augmentin 875 mg p.o. twice daily, which she completed on the first week of April. CTAP was repeated on 05/28 which showed there is 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 site of the prior abscess which involves the anterior wall of the rectum, the posterior aspect of the sigmoid colon, and also extends towards the seminal vesicles. Patient's relative, who is at bedside, states that Surgery office had contacted them to notify them of these results and that they do not believe that any surgical intervention was required at this time. ED Course: LR started maintenance rate at 200 mL/h Labs/Imaging: CBC without leukocytosis, hemoglobin of 16.3, platelets of 222. C MP with no significant electrolyte abnormalities, renal markers within reference range, blood sugar of 94, LFTs unremarkable. Lipase of 1864. Nonfasting lipid panel ordered and pending. CT abdomen/pelvis done and pending read. Medical History: [Reviewed] Medications: [Reviewed] Surgical History: [Reviewed] Family history: [Reviewed] Allergies: [Reviewed] Social History: [Reviewed] Code Status: FULL Admission Exam Per Admitting Provider GENERAL: Awake alert and oriented in all spheres, afebrile, nontoxic, no acute distress HEAD: Atraumatic, normocephalic EYES: EOM intact, PERRL THROAT: Normal to visual inspection CHEST: Symmetric chest expansion with respirations CARDIO: Regular rate and rhythm, holosystolic murmur in right sternal border PULMONARY: Clear to auscultation bilaterally, normal respiratory effort, no respiratory distress GI: Soft, nontender to palpation, nondistended, no guarding or rebound tende rness, no hematoma noted, healed surgical scars consistent with surgical history EXTREMITIES: No swelling or calf tenderness bilaterally Principal Diagnosis moderate-severe constipation Discharge Exam Gen: A&Ox3, no acute distress HEENT: anicteric sclerae, EOM intact, moist oral mucus membranes CV: RRR, holosystolic murmur appreciated, otherwise +s1/s2, no m/r/g, radial pulses 2+ b/l Resp: Clear to auscultation b/l, normal respiratory effort, no respiratory distress GI/Abd: normoactive bowel sounds, vertical well-healed infraumbilical surgical scar present, abdomen soft and nontender to palpation, nondistended, no guarding or rebound tenderness; negative knowles sign, no ecchymosis appreciated Ext: No swelling or calf tenderness b/l MSK: 5/5 strength in b/l UE and LE Neuro: no facial droop, no focal deficits, speech intact Discharge Data Allergies Allergy/AdvReac Type Severity Reaction Status Date / Time No Known Allergies Allergy Verified 05/30/25 23:16 Consultations 05/30/25 23:05 ED Decision to Admit Stat 05/31/25 02:09 Consult General Surgery Routine Ordered Studies 05/30/25 20:41 CT abd pelvis IV con only Stat Hospital Course (1) Constipation: (2) Enteritis: (3) Elevated lipase: (4) Postoperative abscess: (5) Dyslipidemia: Plan Patient is a 64-year-old male with past medical history of hyperlipidemia and vitamin D deficiency who was admitted for acute abdominal pain suspected to be acute pancreatitis. No leukocytosis and stable LFTs reassuring for lack of infection or acute CBD obstruction, respectively. CT abd/pelvis showing moderate-severe constipation, and thus pt was treated with GoLytely for stool disimpaction. Significant stool has passed and ended up becoming clear, vital signs and electrolytes stable, and has been able to tolerate regular diet in the absence of abdominal pain, thus we feel comfortable with his discharge home today. Will follow up with PCP this week as planned on Mon06/04/25, as well as general surgery for followup on postoperative abscess w/ fistula. Constipation At moderate-severe based on stool burden visualized on CT abd/pelvis 05/30/25 Very likely contributor to pt's abdominal pain day prior based on timing shortly after eating dinner, likely related to peristalsis against stool burden - GoLytely given for stool disimpaction, successful cleanout - may continue regular diet as tolerated, ensuring good fiber intake - recommended to use Miralax at home, consider a capful (17g) per day to prevent re-constipation starting 1-2wks after discharge; may titrate as appropriate to obtain soft but not loose stools 1-2x daily Elevated lipase: Acute pancreatitis vs Enteritis - Lipase found to be 1864 (elevated), however liver enzymes within normal limits, CT abd/pelvis without evidence of obvious obstruction, however showing some small bowel edema suggestive of enteritis; normal white blood cell count - Increases suspicion of enteritis as potential cause of elevated lipase due to increased intestinal permeability - continue regular diet with good fluid intake, plan as above for constipation prevention Postoperative abscess with subsequent fistula formation CT Abd/pelvis showing wall thickening and inflammation of the rectosigmoid colon seen on 03/21/2025 has resolved, as has the perirectal abscess seen at the time, no residual fluid collection, 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 site of the prior abscess which involves the anterior wall of the rectum, the posterior aspect of the sigmoid colon, and also extends towards the seminal vesicles, and no evidence of bowel obstruction - based on clinical picture without obvious signs or symptoms of infection, antibiotics were not initiated Follow up with general surgery as an outpatient, scheduled 06/20/25 Dispo: discharge home VTE prophylaxis: N/A Diet: regular, high fiber CODE: Full Total Time Total Time Spent Total Time Spent (In Minutes): 20 Discharge Plan Discharge Items Patient Disposition: Home - Self-Care Reason For Visit: ABD PAIN Discharge Diagnosis: moderate-severe constipation Condition on Discharge: Good Activity: Resume your previous activity Non-emergency contact: Primary Care Provider Call non-emergency contact if: your symptoms worsen and your pain is not controlled Follow-up/Referrals: Gallito Rodriguez MD [Primary Care Provider] - Diet: Regular Addtl Attending Provider Instructions: You were evaluated and treated at [facility] for acute abdominal pain, initially suspected to be acute pancreatitis, but with lack of obvious precipitating factors and lack evidence of obstruction or pancreatic inflammation on CT abdomen/pelvis, this became less likely. However on the same CT abd/pelvis you were found to have moderate-severe constipation, and thus were treated with GoLytely for stool disimpaction. You have since passed a significant amount of stool which ended up coming out clear, and with stable vital signs and electrolytes in addition to clinical stability, including ability to tolerate regular diet and absence of abdominal pain, we feel comfortable with your discharge home today. Please follow up with your outpatient PCP this week as planned on Mon06/04/25, as well as general surgery for followup on postoperative abscess w/ fistula. Constipation - Moderate-severe based on stool burden visualized on CT abd/pelvis 05/30/25 Very likely the primary contributor to your abdominal pain based on timing shortly after eating dinner, likely related to peristalsis against significant stool burden - GoLytely was given for stool disimpaction - may continue regular diet as tolerated, ensuring good fiber intake - recommended to use Miralax at home, consider a capful (17g) per day to prevent re-constipation starting 1-2wks after discharge; may titrate as appropriate to obtain soft but not loose stools 1-2x daily Elevated lipase: Acute pancreatitis vs Enteritis - Lipase found to be 1864 (elevated), however liver enzymes within normal limits, CT abd/pelvis without evidence of obvious obstruction, however showing some small bowel edema suggestive of enteritis; normal white blood cell count - Increases suspicion of enteritis as potential cause of elevated lipase due to increased intestinal permeability - continue regular diet with good fluid intake, plan as above for constipation prevention Postoperative abscess with subsequent fistula formation CT Abd/pelvis showing wall thickening and inflammation of the rectosigmoid colon seen on 03/21/2025 has resolved, as has the perirectal abscess seen at the time, no residual fluid collection, 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 site of the prior abscess which involves the anterior wall of the rectum, the posterior aspect of the sigmoid colon, and also extends towards the seminal vesicles, and no evidence of bowel obstruction - based on clinical picture without obvious signs or symptoms of infection, antibiotics were not initiated Follow up with general surgery as an outpatient Pending Studies at Discharge: No Stand-Alone Forms: My [facility], Smoking Cessation Medications and DC Order Prescriptions: Continued cholecalciferol (vitamin D3) [Vitamin D3] 10 mcg (400 unit) Tablet 10 mcg PO QPM Discharge Orders: Discharge Order (Routine); Ordered 06/01/25 Ordered By: Oh Nickerson/Other Patient Handouts: Treating Constipation, Eating a High-Fiber Diet, ED Constipation (Adult) Admission Data Admit Date/Time: 05/30/25 23:57 Attending Provider: Gurmeet Juarez Admit Provider: Huong Jack Primary Care Provider: Gallito Rodriguez Other Providers: Vaibhav Singleton; Haroldo Austin Other Interventions: Discharge Summary Assessment (RN) Last Done: 06/01/25 10:25 Supervising Physician Co-Signing Physician Notes I personally examined the patient and verified all flores points of history and exam, discussed case, and agree with decision making with Dr Cooper feeling better. feels good and up to going home. revisited dx and plans. suggested stool softener regimen for at least the indefinite but near future moving [facility]. Vitals noted, in general he is awake and alert pleasant no distress. HEENT normocephalic atraumatic mucous membranes moist. breathing unlabored no accessory muscles good effort. Skin shows no rashes no pallor or icterus. abdominal paininitially thought to probably be pancreatitisbut I suspect it is more intestinal related and the lipase is probably up just from intestinal stretch/nonspecific. The only real case "for" pancreatitis would be abdominal pain and an elevated lipase; at the same time the case against would be that he does not have epigastric pain, his pain got better extremely quickly, there was no vomiting, he does not have any pancreatic changes on CT consistent with pancreatitis, and without alcohol/evidence of gallstones/high triglycerides there would not be a real clear-cut cause. His CT showed quite a significant amount of stool, and potentially a degree of small bowel enteritis. I think given that he was eating, that probably created some peristalsis which then either created pain with the enteritis, or (given that he does not really show enteritis symptoms either and I wonder if this is a false positive on CT) it was simply pain from peristalsis. We discussed this in depth/in detail. then discussed optionshe opted for bowel prep -> done. safe/stable for home. rec'd miralax 17g daily as a stool softener moving forward otherwise as above. Resident Activity Tracking Resident Involvement: Resident Care Provided Care Provided: Adult Hospital Medicine
--- NOTE | 2025-06-01 14:26 | Billing Data ---
Date of Service June 01, 2025 Coding Level of Care Code 12814 IN/OBS DISCH 30 MIN/LESS
== END 2025-06-01 10:51 | disposition home or self-care (01) ==
LOC: ED 20:25 → 3N 20:25 → SUATTDRO 23:57 → 3N 05-31 01:20